=== PATIENT | male | born 1960 | race Two or more races ===

== ENCOUNTER 2019-02-25 16:52 | Emergency (ER) | payer OTHER ==
[2019-02-25 16:55] VITALS: BP 124/67
[2019-02-25] MEDS ORDERED: ACETAMINOPHEN 500 MG TABLET PO ONE (17:15)
[2019-02-25 17:33] LABS: INFLUENZA A PATIENT POSITIVE (NEGATIVE); INFLUENZA B PATIENT NEGATIVE (NEGATIVE)
--- NOTE | 2019-02-25 17:36 | RAD ---
Chest radiograph 02/25/2019 5:06 PM INDICATION: Fever, cough COMPARISON: None available TECHNIQUE: Frontal and lateral views of the chest are provided. FINDINGS: The cardiomediastinal silhouette is within normal limits. There are no pleural effusions. There is no pulmonary vascular congestion. There is no pneumothorax. Rounded opacity in the right midlung measures 2.3 cm. No significant osseous abnormality is identified. IMPRESSION: 2.3 cm rounded nodular opacity in the right midlung is identified. Differential considerations include rounded pneumonia versus pulmonary neoplasm. Recommend CT chest for further evaluation. Electronically signed by: Janina Sotelo MD (02/25/2019 5:33 PM) [facility]
--- NOTE | 2019-02-25 17:50 | PHYS DOC ---
Past Medical History Alcohol Use: Rarely (LO GUERRERO APRN) Attending Signature I have participated in the care of this patient and I have reviewed and agree with all pertinent clinical information above including history, exam, and recommendations. (CIPRIANO TANNER MD) Adult General Chief Complaint Chief Complaint: COUGH HPI HPI Patient is a 58 year old medical presents to the ED today complaining of a productive cough with body aches fevers and chills that began yesterday. Denies any shortness of breath. (LO GUERRERO APRN) Review of Systems Review of Systems Constitutional: Reports body aches chills and fever Eyes: Denies change in visual acuity, redness, or eye pain [] HENT: Denies nasal congestion or sore throat [] Respiratory: Reports cough, denies shortness of breath [] Cardiovascular: No additional information not addressed in HPI [] GI: Denies abdominal pain, nausea, vomiting, bloody stools or diarrhea [] : Denies dysuria or hematuria [] Musculoskeletal: Denies back pain or joint pain [] Integument: Denies rash or skin lesions [] Neurologic: Denies headache, focal weakness or sensory changes [] All other systems were reviewed and found to be within normal limits, except as documented in this note. (LO GUERRERO APRN) Current Medications Current Medications Current Medications Medications (Trade) Dose Ordered Sig/Babatunde Start Time Stop Time Status Last Admin Dose Admin Acetaminophen (Tylenol) 1,000 mg 1X ONCE 02/25/19 17:15 02/25/19 17:16 DC 02/25/19 17:16 1,000 MG (CIPRIANO TANNER MD) Allergies Allergies Allergies Coded Allergies Type Severity Reaction Last Updated Verified No Known Drug Allergies 02/25/19 No (CIPRIANO TANNER MD) Physical Exam Physical Exam Constitutional: Well developed, well nourished, no acute distress, non-toxic appearance. [] HENT: Normocephalic, atraumatic, bilateral external ears normal, oropharynx moist, no oral exudates, nose normal. [] Eyes: PERRLA, EOMI, conjunctiva normal, no discharge. [] Neck: Normal range of motion, no tenderness, supple, no stridor. [] Cardiovascular:Heart rate regular rhythm, no murmur [] Lungs & Thorax: Bilateral breath sounds clear to auscultation [] Abdomen: Bowel sounds normal, soft, no tenderness, no masses, no pulsatile masses. [] Skin: Warm, dry, no erythema, no rash. [] Back: No tenderness, no CVA tenderness. [] Extremities: No tenderness, no cyanosis, no clubbing, ROM intact, no edema. [] Neurologic: Alert and oriented X 3, normal motor function, normal sensory function, no focal deficits noted. [] Psychologic: Affect normal, judgement normal, mood normal. [] (LO GUERRERO APRN) Current Patient Data Vital Signs Vital Signs Date Time Temp Pulse Resp B/P (MAP) Pulse Ox O2 Delivery O2 Flow Rate FiO2 02/25/19 16:55 100.4 100 18 124/67 (86) 97 Room Air 100.4 (CIPRIANO TANNER MD) Lab Values Laboratory Tests Test 02/25/19 17:02 Influenza Type A Antigen Positive (NEGATIVE) Influenza Type B Antigen Negative (NEGATIVE) (CIPRIANO TANNER MD) EKG EKG [] (LO GUERRERO APRN) Radiology/Procedures Radiology/Procedures []PROCEDURE: CHEST PA & LATERAL Chest radiograph 02/25/2019 5:06 PM INDICATION: Fever, cough COMPARISON: None available TECHNIQUE: Frontal and lateral views of the chest are provided. FINDINGS: The cardiomediastinal silhouette is within normal limits. There are no pleural effusions. There is no pulmonary vascular congestion. There is no pneumothorax. Rounded opacity in the right midlung measures 2.3 cm. No significant osseous abnormality is identified. IMPRESSION: 2.3 cm rounded nodular opacity in the right midlung is identified. Differential considerations include rounded pneumonia versus pulmonary neoplasm. Recommend CT chest for further evaluation. Electronically signed by: Aashish Peter MD (02/25/2019 5:33 PM) [id number] DICTATED and SIGNED BY: AASHISH PETER MD DATE: 02/25/19 1733 PROCEDURE: CT CHEST WO CONTRAST Examination: CT CHEST WO CONTRAST History: Lung nodule Comparison/Correlation: 02/25/2019 two-view chest x-ray exam Findings: Axial images of chest were obtained without contrast. Sagittal and coronal reformatted images were provided. Calcified granuloma involves the right lateral upper lung field corresponding to the mass reported on chest x-ray exam. This measures 2.4 cm x 1.5 cm in the axial plane. Several smaller satellite surrounding calcified granulomas are present as well. Minimal linear scarring or atelectasis involving posterior lung bases noted. Mild bronchial wall thickening of the lower lobes noted may represent mild bronchitis. No pleural or effusion. No enlarged thoracic lymph nodes. No pneumothorax. Minimal diverticulosis is present. Low-attenuation lesion involving the liver measuring up to 0.8 cm diameter is present on axial image 49. It is too small to characterize and of indeterminate significance. It is not smoothly marginated. Bony structures are unremarkable. Impression: No suspicious pulmonary nodule or mass. Benign-appearing calcified granulomas involving the right upper lobe presumably related to previous granulomatous or other infectious process. Indeterminate hepatic lesions is too small to characterize. Correlate with prior exams if available to establish stability. If stability is unknown and the patient's risk factors are low, then follow-up CT of the abdomen with contrast in 4-6 months may be performed to assess stability. PQRS Compliance Statement: One or more of the following individualized dose reduction techniques were utilized for this examination: 1. Automated exposure control 2. Adjustment of the mA and/or kV according to patient size 3. Use of iterative reconstruction technique Electronically signed by: Shawn Jo MD (02/25/2019 6:21 PM) [facility] DICTATED and SIGNED BY: SHAWN JO MD DATE: 02/25/191820 (LO GUERRERO APRN) Course & Med Decision Making Course & Med Decision Making Pertinent Labs and Imaging studies reviewed. (See chart for details) This is a 58-year-old male patient presented to the ED today with productive cough, body aches chills and fever that began yesterday. Temperature 100.4 on arrival. Positive influenza A. Chest x-ray interpreted by radiologist was noted for -2.3 cm rounded nodular opacity in the right midlung is identified. Differential considerations include rounded pneumonia versus pulmonary neoplasm. Recommend CT chest for further evaluation. Ct of the chest -No suspicious pulmonary nodule or mass. Benign-appearing calcified granulomas involving the right upper lobe presumably related to previous granulomatous or other infectious process. Indeterminate hepatic lesions is too small to characterize Patient reports hx of lung infection 30 years ago as well as Hepatitis C D/c on Tamiflu and cough medicine f/u with PCP in 1-2 weeks. (LO GUERRERO APRN) Dragon Disclaimer Dragon Disclaimer This electronic medical record was generated, in whole or in part, using a voice recognition dictation system. (LO GUERRERO APRN) Departure Departure Impression: Primary Impression: Influenza A Additional Impressions: Fever Cough Disposition: HOME, SELF-CARE Condition: STABLE Patient Instructions: Cough, Adult, Xtcw-mr-Iair, Fever, Adult, Influenza A (H1N1) Additional Instructions: You have influenza A. Please take the prescribed medicines as ordered. Please rest, push fluids. Follow up with your doctor in 1-2 weeks. Scripts Prednisone (PREDNISONE) 50 Mg Tablet 1 TAB PO DAILY, #5 TAB Prov: LO GUERRERO APRN 02/25/19 Oseltamivir Phosphate (TAMIFLU) 75 Mg Capsule 1 CAP PO BID, #10 CAP Prov: LO GUERRERO APRN 02/25/19 Problem Qualifiers Additional Impressions: Fever Fever type: unspecified Qualified Codes: R50.9 - Fever, unspecified LO GUERRERO APRN Feb 25, 2019 17:49 CIPRIANO TANNER MD Feb 26, 2019 05:45
--- NOTE | 2019-02-25 18:24 | RAD ---
Examination: CT CHEST WO CONTRAST History: Lung nodule Comparison/Correlation: 02/25/2019 two-view chest x-ray exam Findings: Axial images of chest were obtained without contrast. Sagittal and coronal reformatted images were provided. Calcified granuloma involves the right lateral upper lung field corresponding to the mass reported on chest x-ray exam. This measures 2.4 cm x 1.5 cm in the axial plane. Several smaller satellite surrounding calcified granulomas are present as well. Minimal linear scarring or atelectasis involving posterior lung bases noted. Mild bronchial wall thickening of the lower lobes noted may represent mild bronchitis. No pleural or effusion. No enlarged thoracic lymph nodes. No pneumothorax. Minimal diverticulosis is present. Low-attenuation lesion involving the liver measuring up to 0.8 cm diameter is present on axial image 49. It is too small to characterize and of indeterminate significance. It is not smoothly marginated. Bony structures are unremarkable. Impression: No suspicious pulmonary nodule or mass. Benign-appearing calcified granulomas involving the right upper lobe presumably related to previous granulomatous or other infectious process. Indeterminate hepatic lesions is too small to characterize. Correlate with prior exams if available to establish stability. If stability is unknown and the patient's risk factors are low, then follow-up CT of the abdomen with contrast in 4-6 months may be performed to assess stability. PQRS Compliance Statement: One or more of the following individualized dose reduction techniques were utilized for this examination: 1. Automated exposure control 2. Adjustment of the mA and/or kV according to patient size 3. Use of iterative reconstruction technique Electronically signed by: Shawn Ackerman MD (02/25/2019 6:21 PM) [facility]
[2019-02-25] MEDS ORDERED: PRED50TA PO (18:41)
[2019-02-25] MEDS ORDERED: PROM5SYR2 PO (18:41)
[2019-02-25] MEDS ORDERED: OSEL75CA PO (18:41)
== END 2019-02-25 18:55 | disposition home or self-care (01) ==
LOC: ER 16:52
DX: J10.1 Influenza due to other identified influenza virus with other respiratory manifestations (principal)
CPT/HCPCS: 71046; 71250; 87804; 99285-25

== ENCOUNTER 2020-02-27 09:25 | Inpatient (IN) | payer OTHER ==
[~2020-02-27] VITALS: Ht 170.2 cm; Wt 60.7 kg
[~2020-02-27 09:25] MED LIST: OSEL75CA PO; PRED50TA PO; PROM5SYR2 PO
--- NOTE | 2020-02-27 10:32 | PHYS DOC ---
Past Medical History Smoking Status: Never Smoker Alcohol Use: Rarely General Adult EDM: Chief Complaint: SHORTNESS OF BREATH HPI: HPI: Patient is a 59 year old male who presented to ER for evaluation of cough, fever, trouble breathing. Patient has been sick for a week, tested positive for COVID-19 on last Tuesday. Patient is a non-smoker. He has no history of COPD, he is not on oxygen at home. Patient denies any chest pain, no abdominal pain, no nausea or vomiting. Patient oxygen saturation on room air is 85% upon arrival to room, his oxygen saturation improved to 95% with 2 L of oxygen. Review of Systems: Review of Systems: Constitutional: Positive for fever or chills. [] Eyes: Denies change in visual acuity. [] HENT: Denies nasal congestion or sore throat. [] Respiratory: Positive for cough and shortness of breath. [] Cardiovascular: Denies chest pain or edema. [] GI: Denies abdominal pain, nausea, vomiting, bloody stools or diarrhea. [] : Denies dysuria. [] Musculoskeletal: Denies back pain or joint pain. [] Integument: Denies rash. [] Neurologic: Denies headache, focal weakness or sensory changes. [] Endocrine: Denies polyuria or polydipsia. [] Lymphatic: Denies swollen glands. [] Psychiatric: Denies depression or anxiety. [] Heart Score: Risk Factors: Risk Factors: DM, Current or recent (<one month) smoker, HTN, HLP, family history of CAD, obesity. Risk Scores: Score 0 - 3: 2.5% MACE over next 6 weeks - Discharge Home Score 4 - 6: 20.3% MACE over next 6 weeks - Admit for Clinical Observation Score 7 - 10: 72.7% MACE over next 6 weeks - Early Invasive Strategies Allergies: Allergies: Allergies Coded Allergies Type Severity Reaction Last Updated Verified No Known Drug Allergies 02/25/19 No Physical Exam: PE: Constitutional: Well developed, well nourished, no acute distress, non-toxic appearance. [] HENT: Normocephalic, atraumatic, bilateral external ears normal, oropharynx moist, no oral exudates, nose normal. [] Eyes: PERRLA, EOMI, conjunctiva normal, no discharge. [] Neck: Normal range of motion, no tenderness, supple, no stridor. [] Cardiovascular:Heart rate regular rhythm, no murmur [] Lungs & Thorax: Bilateral breath sounds with diffuse crackles to auscultation [] Abdomen: Bowel sounds normal, soft, no tenderness, no masses, no pulsatile masses. [] Skin: Warm, dry, no erythema, no rash. [] Back: No tenderness, no CVA tenderness. [] Extremities: No tenderness, no cyanosis, no clubbing, ROM intact, no edema. [] Neurologic: Alert and oriented X 3, normal motor function, normal sensory function, no focal deficits noted. [] Psychologic: Affect normal, judgement normal, mood normal. [] Current Patient Data: Labs: Laboratory Tests Test 02/27/20 10:30 Sodium Level 137 mmol/L Potassium Level 4.0 mmol/L Chloride Level 100 mmol/L Carbon Dioxide Level 26 mmol/L Anion Gap 11 Blood Urea Nitrogen 18 mg/dL Creatinine 1.0 mg/dL Estimated GFR (Cockcroft-Gault) 76.5 BUN/Creatinine Ratio 18 Glucose Level 128 mg/dL Lactic Acid Level 1.3 mmol/L Calcium Level 8.6 mg/dL Total Bilirubin 1.4 mg/dL Aspartate Amino Transf (AST/SGOT) 59 U/L Alanine Aminotransferase (ALT/SGPT) 76 U/L Alkaline Phosphatase 90 U/L Troponin I Quantitative < 0.017 ng/mL Total Protein 7.1 g/dL Albumin 3.5 g/dL Albumin/Globulin Ratio 1.0 Current Medications Medications (Trade) Dose Ordered Sig/Babatunde Route PRN Reason Start Time Stop Time Status Last Admin Dose Admin Ceftriaxone Sodium (Rocephin) 1 gm 1X ONCE IVP 02/27/20 11:15 02/27/20 11:16 Methylprednisolone Sodium Succinate (SOLU-Medrol 125MG VIAL) 125 mg 1X ONCE IV 02/27/20 11:15 02/27/20 11:16 EKG: EKG: [] Radiology/Procedures: Radiology/Procedures: [][facility] [address] [place], [place] [id number] IMAGING REPORT Signed PATIENT: JANELL KINNEYOUNT: [id number] : 1960 LOCATION: ER AGE: 59 SEX: M EXAM STATUS: REG ER ORD. PHYSICIAN: MABLE PATTON DO REASON: COVID-19 INFECTION, HYPOXIA PROCEDURE: PORTABLE CHEST 1V Single AP view of the chest. Comparison: 02/25/2019. Indication: Covid infection and hypoxia Findings: The heart is not enlarged. There is no pneumothorax or effusion. Mild per ipheral interstitial opacities are identified in the mid lung. There are air bronchograms seen in the retrocardiac left lung base. Impression: 1. Probable infectious consolidating pneumonia superimposed on mild Covid pneumonia. Electronically signed by: Yovanny Quintanilla MD (02/27/2020 11:34 AM) [id number] DICTATED and SIGNED BY: YOVANNY QUINTANILLA MD DATE: 02/27/20 [id number] 0 Course & Med Decision Making: Course & Med Decision Making Pertinent Labs and Imaging studies reviewed. (See chart for details) Patient is a 59-year-old male who was evaluated in the ER due to trouble breathing, fever. Patient has COVID-19 infection since last week, he is hypoxic. He will need to be admitted to the hospital for respiratory failure. Dragon Disclaimer: Dragon Disclaimer: This electronic medical record was generated, in whole or in part, using a voice recognition dictation system. Departure Departure Impression: Primary Impression: Pneumonia due to COVID-19 virus Additional Impression: Respiratory failure Disposition: ADMITTED INPT THIS HOSP Admitting Physician: XAVIER (DR. CHRISTIE) Condition: IMPROVED Referrals: NO PCP (PCP) MABLE PATTON DO Feb 27, 2020 10:31
[2020-02-27 11:01] LABS: CALCIUM 8.6 mg/dL (8.5-10.1); GFR 76.5
[2020-02-27 11:06] LABS: BILIRUBIN,URINE SMALL (NEG); CLARITY,URINE CLEAR; COLOR,URINE ORANGE; NITRITE,URINE NEGATIVE (NEG); PROTEIN,URINE >=300 mg/dL (NEG-TRACE)
[2020-02-27 11:07] LABS: ALBUMIN 3.5 g/dL (3.4-5.0); TOTAL BILIRUBIN 1.4 mg/dL (0.2-1.0); TOTAL PROTEIN 7.1 g/dL (6.4-8.2)
[2020-02-27] MEDS ORDERED: cefTRIAXone IV Push 1 GM VIAL. IVP ONE (11:15)
[2020-02-27] MEDS ORDERED: methylPREDNISolone SOD SUCC PF 125 MG/2 ML VIAL. IV ONE (11:15)
--- NOTE | 2020-02-27 11:16 | PDOC1 ---
History and Physical Date of Admission Date of Admission DATE: 02/27/20 TIME: 11:15 Identification/Chief Complaint Chief Complaint SEEN IN ER WITH COVID 19 PNEUMONIA 59 year old male who presented to ER for evaluation of cough, fever, trouble breathing. //has been sick for a week, tested positive for COVID-19 on last Tuesday. non-smoker. denies any chest pain, no abdominal pain, no nausea or vomiting. oxygen saturation on room air is 85% upon arrival to room, his oxygen saturation improved to 95% with 2 L of oxygen. Past Medical History Cardiovascular: Hyperlipidemia Family History Family History: Hypertension Social History Smoke: <1 pack per day ALCOHOL: none Drugs: None Current Medications Current Medications Current Medications Ceftriaxone Sodium (Rocephin) 1 gm 1X ONCE IVP ; Start 02/27/20 at 11:15; Stop 02/27/20 at 11:16 Methylprednisolone Sodium Succinate (SOLU-Medrol 125MG VIAL) 125 mg 1X ONCE IV ; Start 02/27/20 at 11:15; Stop 02/27/20 at 11:16 Active Scripts Active Prednisone 50 Mg Tablet 1 Tab PO DAILY Tamiflu (Oseltamivir Phosphate) 75 Mg Capsule 1 Cap PO BID Allergies Allergies: Coded Allergies: No Known Drug Allergies (Unverified , 02/25/19) ROS Review of System Constitutional: Positive for fever or chills. [] Eyes: Denies change in visual acuity. [] HENT: Denies nasal congestion or sore throat. [] Respiratory: Positive for cough and shortness of breath. [] Cardiovascular: Denies chest pain or edema. [] GI: Denies abdominal pain, nausea, vomiting, bloody stools or diarrhea. [] : Denies dysuria. [] Musculoskeletal: Denies back pain or joint pain. [] Integument: Denies rash. [] Neurologic: Denies headache, focal weakness or sensory changes. [] Endocrine: Denies polyuria or polydipsia. [] Lymphatic: Denies swollen glands. [] Psychiatric: Denies depression or anxiety. [] 14 pt ros otherwise neg General: YES: Fatigue, Malaise Respiratory: YES: Shortness of breath, SOB with excertion Physical Exam Physical Exam Constitutional: Well developed, well nourished, no acute distress, non-toxic appearance. [] HENT: Normocephalic, atraumatic, bilateral external ears normal, oropharynx moist, no oral exudates, nose normal. [] Eyes: PERRLA, EOMI, conjunctiva normal, no discharge. [] Neck: Normal range of motion, no tenderness, supple, no stridor. [] Cardiovascular:Heart rate regular rhythm, no murmur [] Lungs & Thorax: Bilateral breath sounds with diffuse crackles to auscultation [] Abdomen: Bowel sounds normal, soft, no tenderness, no masses, no pulsatile masses. [] Skin: Warm, dry, no erythema, no rash. [] Back: No tenderness, no CVA tenderness. [] Extremities: No tenderness, no cyanosis, no clubbing, ROM intact, no edema. [] Neurologic: Alert and oriented X 3, normal motor function, normal sensory function, no focal deficits noted. [] Psychologic: Affect normal, judgment normal, mood normal. [] Vitals Vitals Vital Signs Date Time Temp Pulse Resp B/P (MAP) Pulse Ox O2 Delivery O2 Flow Rate FiO2 02/27/20 10:25 101.9 96 20 143/67 (92) 93 Nasal Cannula 4.0 101.9 Labs Labs Laboratory Tests Test 02/27/20 10:30 Sodium Level 137 mmol/L (136-145) Potassium Level 4.0 mmol/L (3.5-5.1) Chloride Level 100 mmol/L (98-107) Carbon Dioxide Level 26 mmol/L (21-32) Anion Gap 11 (6-14) Blood Urea Nitrogen 18 mg/dL (8-26) Creatinine 1.0 mg/dL (0.7-1.3) Estimated GFR (Cockcroft-Gault) 76.5 BUN/Creatinine Ratio 18 (6-20) Glucose Level 128 mg/dL (70-99) Lactic Acid Level 1.3 mmol/L (0.4-2.0) Calcium Level 8.6 mg/dL (8.5-10.1) Total Bilirubin 1.4 mg/dL (0.2-1.0) Aspartate Amino Transf (AST/SGOT) 59 U/L (15-37) Alanine Aminotransferase (ALT/SGPT) 76 U/L (16-63) Alkaline Phosphatase 90 U/L (46-116) Troponin I Quantitative < 0.017 ng/mL (0.000-0.055) Total Protein 7.1 g/dL (6.4-8.2) Albumin 3.5 g/dL (3.4-5.0) Albumin/Globulin Ratio 1.0 (1.0-1.7) Laboratory Tests Test 02/27/20 10:30 Sodium Level 137 mmol/L (136-145) Potassium Level 4.0 mmol/L (3.5-5.1) Chloride Level 100 mmol/L (98-107) Carbon Dioxide Level 26 mmol/L (21-32) Anion Gap 11 (6-14) Blood Urea Nitrogen 18 mg/dL (8-26) Creatinine 1.0 mg/dL (0.7-1.3) Estimated GFR (Cockcroft-Gault) 76.5 BUN/Creatinine Ratio 18 (6-20) Glucose Level 128 mg/dL (70-99) Lactic Acid Level 1.3 mmol/L (0.4-2.0) Calcium Level 8.6 mg/dL (8.5-10.1) Total Bilirubin 1.4 mg/dL (0.2-1.0) Aspartate Amino Transf (AST/SGOT) 59 U/L (15-37) Alanine Aminotransferase (ALT/SGPT) 76 U/L (16-63) Alkaline Phosphatase 90 U/L (46-116) Troponin I Quantitative < 0.017 ng/mL (0.000-0.055) Total Protein 7.1 g/dL (6.4-8.2) Albumin 3.5 g/dL (3.4-5.0) Albumin/Globulin Ratio 1.0 (1.0-1.7) Images Images Single AP view of the chest. Comparison: 02/25/2019. Indication: Covid infection and hypoxia Findings: The heart is not enlarged. There is no pneumothorax or effusion. Mild peripheral interstitial opacities are identified in the mid lung. There are air bronchograms seen in the retrocardiac left lung base. Impression: 1. Probable infectious consolidating pneumonia superimposed on mild Covid pneumonia. Electronically signed by: Abdelrahman Araiza MD (02/27/2020 11:34 AM) [id number] DICTATED and SIGNED BY: ABDELRAHMAN ARAIZA MD VTE Prophylaxis Ordered VTE Prophylaxis Devices: Yes VTE Pharmacological Prophylaxi: Yes Assessment/Plan Assessment/Plan Impression: Acute hypoxic respiratory failure consolidating pneumonia superimposed on mild Covid pneumonia. plan admit consult pulmonary o2 support Empiric antibiotic. IV dexamethasone. D/W er dr Justifications for Admission Other Justification GOLDEN CHRISTIE MD Feb 27, 2020 11:16
[2020-02-27 11:20] LABS: BASO % 0 % (0-3); EOS % 0 % (0-3); HEMATOCRIT 42.3 % (39.0-53.0); HEMOGLOBIN 14.5 g/dL (13.0-17.5); LYMPH # 0.5 x10^3/uL (1.0-4.8); LYMPH % 5 % (24-48); MEAN CORPUSCULAR HEMOGLOBIN 31 pg (25-35); MEAN CORPUSCULAR HGB CONC 34 g/dL (31-37); MEAN CORPUSCULAR VOLUME 90 fL (79-100); MONO # 0.7 x10^3/uL (0.0-1.1); MONO % 7 % (0-9); NEUT # 8.7 x10^3/uL (1.8-7.7); NEUT % 88 % (31-73); PLATELET COUNT 174 x10^3/uL (140-400); RED BLOOD COUNT 4.72 x10^6/uL (4.30-5.70); RED CELL DISTRIBUTION WIDTH 13.4 % (11.5-14.5); WHITE BLOOD COUNT 9.9 x10^3/uL (4.0-11.0)
[2020-02-27 11:24] LABS: BACTERIA,URINE FEW /HPF (0-FEW); RBC,URINE OCC /HPF (0-2)
[2020-02-27] MEDS: IV NORMAL SALINE 1000ML BAG 1,000 ML IV SCH ×2 (11:29→23:45)
[2020-02-27] MEDS ORDERED: ONDANSETRON PF 4 MG/2 ML VIAL. IV PRN ×2 (11:30→14:15)
--- NOTE | 2020-02-27 11:37 | RAD ---
Single AP view of the chest. Comparison: 02/25/2019. Indication: Covid infection and hypoxia Findings: The heart is not enlarged. There is no pneumothorax or effusion. Mild peripheral interstitial opacit ies are identified in the mid lung. There are air bronchograms seen in the retrocardiac left lung bas e. Impression: 1. Probable infectious consolidating pneumonia superimposed on mild Covid pneumonia. Electronically signed by: Yovanny Quintanilla MD (02/27/2020 11:34 AM) [id number]
[2020-02-27 12:19] LABS: % BANDS 3 % (0-9); % EOS 1 % (0-5); % MONOS 5 % (0-10); % SEGS 91 % (35-66); PLT ESTIMATE ADEQUATE (ADEQUATE)
--- NOTE | 2020-02-27 12:19 | CONS ---
DATE OF CONSULTATION: 02/27/2020 Reason for consultation: COVID -19 Pneumonia/ Respiratory failure Patient is a 59 year old male who presented to ER for evaluation of cough, fever, trouble breathing. Patient has been sick for a week, tested positive for COVID-19 on last Tuesday. Patient is a non-smoker. He has no history of COPD, he is not on oxygen at home. Patient denies any chest pain, no abdominal pain, no nausea or vomiting. Patient oxygen saturation on room air is 85% upon arrival to room, his oxygen saturation improved to 95% with 2 L of oxygen.No headache, nausea, vomitting . Pt was seen in the ER. PMH: Not significant. ALLERGIES: None. MEDICATIONS: Given in the ER were reviewed. FAMILY HISTORY: Noncontributory to lungs. PHYSICAL EXAMINATION: VITAL SIGNS: T-max of 101.9. Blood pressure stable, pulse ox 93% on 4 liters. GENERAL: Visual exam done due to COVID-19. No obvious respiratory distress. EXTREMITIES: No leg edema. LABORATORY DATA: Reviewed. White cell count 9.9, hemoglobin 14.5 and platelets are 174. IMPRESSION: 1. Acute hypoxic respiratory failure secondary to COVID-19 pneumonia. 2. Abnormal chest x-ray with faint interstitial infiltrates in the left lung. 3. No significant tobacco history. RECOMMENDATIONS: 1. Continue present oxygen to keep saturation 94 and above. 2. Empiric antibiotic. 3. IV dexamethasone. 4. We will monitor the clinical course and watch for any increase in oxygen requirement. 5. DVT prophylaxis. 6. Discussed with ER physician. ADALBERTO EDGAR MD DR: MONIQUE/alyssia JOB#: [id number] / [id number] CALNI
[2020-02-27] MEDS ORDERED: ACETAMINOPHEN 325 MG TABLET. PO PRN ×2 (14:00→14:15)
[2020-02-27 14:01] VITALS: BP 120/60
[2020-02-27] MEDS ORDERED: GUAI600T47 PO (14:01)
[2020-02-27] MEDS ORDERED: DOCUSATE SODIUM 100 MG CAPSULE. PO PRN (14:15)
[2020-02-27] MEDS ORDERED: MAG HYDROX/ALUMINUM HYD/SIMETH 30 ML ORAL.SUSP PO PRN (14:15)
[2020-02-27] MEDS ORDERED: SODIUM PHOSPHATES 19/7GM 133 ML ENEMA. PR PRN (14:15)
[2020-02-27] MEDS ORDERED: diphenhydrAMINE 50 MG/ML VIAL IVP PRN (14:15)
[2020-02-27] MEDS ORDERED: ALBUTEROL SULFATE 2.5 MG/3 ML NEBU. NEB PRN (14:15)
[2020-02-27] MEDS ORDERED: LORazepam 0.5 MG TABLET PO PRN (14:15)
[2020-02-27] MEDS ORDERED: cloNIDine HCL 0.1 MG TABLET PO PRN (14:15)
[2020-02-27] MEDS ORDERED: IV NORMAL SALINE 1000ML BAG 1,000 ML IV SCH (14:15)
[2020-02-27] MEDS ORDERED: guaiFENesin ORAL 200 MG/10 ML LIQUID. PO PRN (14:15)
[2020-02-27] MEDS ORDERED: 0.9 % SODIUM CHLORIDE 10 ML DISP.SYRIN. IV PRN (14:15)
[2020-02-27] MEDS ORDERED: ENOXAPARIN 40 MG/0.4 ML SYRINGE. SQ SCH (15:00)
[2020-02-27] MEDS: PIPERACILLIN/TAZOBACTAM 3.375 GM in IV NORMAL SALINE 50ML 50 ML IV SCH (15:52)
[2020-02-27 19:00] VITALS: BP 112/60
[2020-02-27 22:54] VITALS: BP 104/67
[2020-02-28] MEDS: PIPERACILLIN/TAZOBACTAM 3.375 GM in IV NORMAL SALINE 50ML 50 ML IV SCH ×5 (00:22→23:25)
[2020-02-28 03:00] VITALS: BP 127/67
[2020-02-28 07:00] VITALS: BP 129/64
[2020-02-28] MEDS: DEXAMETHASONE SOD PHOS 4 MG/ML VIAL IVP SCH (08:09)
--- NOTE | 2020-02-28 08:36 | PDOC ---
PULMONARY PROGRESS NOTES DATE: 02/28/20 TIME: 08:36 Subjective Patient feels tired, but not more short of air. No chest pain no pressure. Vitals Vital Signs Date Time Temp Pulse Resp B/P (MAP) Pulse Ox O2 Delivery O2 Flow Rate FiO2 02/28/20 07:00 97.2 81 17 129/64 (85) 91 Nasal Cannula 2.0 97.2 ROS: No Nausea, No Chest Pain, No Abdominal Pain, No Increase Cough Lungs: Clear Cardiovascular: S1, S2 Abdomen: Soft Neuro Exam: Alert Extremities: No Edema Skin: Warm Labs Laboratory Tests Test 02/27/20 10:30 White Blood Count 9.9 x10^3/uL (4.0-11.0) Red Blood Count 4.72 x10^6/uL (4.30-5.70) Hemoglobin 14.5 g/dL (13.0-17.5) Hematocrit 42.3 % (39.0-53.0) Mean Corpuscular Volume 90 fL (79-100) Mean Corpuscular Hemoglobin 31 pg (25-35) Mean Corpuscular Hemoglobin Concent 34 g/dL (31-37) Red Cell Distribution Width 13.4 % (11.5-14.5) Platelet Count 174 x10^3/uL (140-400) Neutrophils (%) (Auto) 88 % (31-73) Lymphocytes (%) (Auto) 5 % (24-48) Monocytes (%) (Auto) 7 % (0-9) Eosinophils (%) (Auto) 0 % (0-3) Basophils (%) (Auto) 0 % (0-3) Neutrophils # (Auto) 8.7 x10^3/uL (1.8-7.7) Lymphocytes # (Auto) 0.5 x10^3/uL (1.0-4.8) Monocytes # (Auto) 0.7 x10^3/uL (0.0-1.1) Eosinophils # (Auto) 0.0 x10^3/uL (0.0-0.7) Basophils # (Auto) 0.0 x10^3/uL (0.0-0.2) Segmented Neutrophils % 91 % (35-66) Band Neutrophils % 3 % (0-9) Monocytes % 5 % (0-10) Eosinophils % 1 % (0-5) Platelet Estimate Adequate (ADEQUATE) Urine Collection Type Unknown Urine Color [place] Urine Clarity Clear Urine pH 6.0 (<5.0-8.0) Urine Specific [place] >=1.030 (1.000-1.030) Urine Protein >=300 mg/dL (NEG-TRACE) Urine Glucose (UA) Negative mg/dL (NEG) Urine Ketones (Stick) >=80 mg/dL (NEG) Urine Blood Trace (NEG) Urine Nitrite Negative (NEG) Urine Bilirubin Small (NEG) Urine Urobilinogen Dipstick 4.0 mg/dL (0.2 mg/dL) Urine Leukocyte Esterase Trace (NEG) Urine RBC Occ /HPF (0-2) Urine WBC 1-4 /HPF (0-4) Urine Squamous Epithelial Cells Occ /LPF Urine Bacteria Few /HPF (0-FEW) Urine Mucus Mod /LPF Sodium Level 137 mmol/L (136-145) Potassium Level 4.0 mmol/L (3.5-5.1) Chloride Level 100 mmol/L (98-107) Carbon Dioxide Level 26 mmol/L (21-32) Anion Gap 11 (6-14) Blood Urea Nitrogen 18 mg/dL (8-26) Creatinine 1.0 mg/dL (0.7-1.3) Estimated GFR (Cockcroft-Gault) 76.5 BUN/Creatinine Ratio 18 (6-20) Glucose Level 128 mg/dL (70-99) Lactic Acid Level 1.3 mmol/L (0.4-2.0) Calcium Level 8.6 mg/dL (8.5-10.1) Total Bilirubin 1.4 mg/dL (0.2-1.0) Aspartate Amino Transf (AST/SGOT) 59 U/L (15-37) Alanine Aminotransferase (ALT/SGPT) 76 U/L (16-63) Alkaline Phosphatase 90 U/L (46-116) Troponin I Quantitative < 0.017 ng/mL (0.000-0.055) Total Protein 7.1 g/dL (6.4-8.2) Albumin 3.5 g/dL (3.4-5.0) Albumin/Globulin Ratio 1.0 (1.0-1.7) Laboratory Tests Test 02/27/20 10:30 White Blood Count 9.9 x10^3/uL (4.0-11.0) Red Blood Count 4.72 x10^6/uL (4.30-5.70) Hemoglobin 14.5 g/dL (13.0-17.5) Hematocrit 42.3 % (39.0-53.0) Mean Corpuscular Volume 90 fL (79-100) Mean Corpuscular Hemoglobin 31 pg (25-35) Mean Corpuscular Hemoglobin Concent 34 g/dL (31-37) Red Cell Distribution Width 13.4 % (11.5-14.5) Platelet Count 174 x10^3/uL (140-400) Neutrophils (%) (Auto) 88 % (31-73) Lymphocytes (%) (Auto) 5 % (24-48) Monocytes (%) (Auto) 7 % (0-9) Eosinophils (%) (Auto) 0 % (0-3) Basophils (%) (Auto) 0 % (0-3) Neutrophils # (Auto) 8.7 x10^3/uL (1.8-7.7) Lymphocytes # (Auto) 0.5 x10^3/uL (1.0-4.8) Monocytes # (Auto) 0.7 x10^3/uL (0.0-1.1) Eosinophils # (Auto) 0.0 x10^3/uL (0.0-0.7) Basophils # (Auto) 0.0 x10^3/uL (0.0-0.2) Segmented Neutrophils % 91 % (35-66) Band Neutrophils % 3 % (0-9) Monocytes % 5 % (0-10) Eosinophils % 1 % (0-5) Platelet Estimate Adequate (ADEQUATE) Urine Collection Type Unknown Urine Color [place] Urine Clarity Clear Urine pH 6.0 (<5.0-8.0) Urine Specific [place] >=1.030 (1.000-1.030) Urine Protein >=300 mg/dL (NEG-TRACE) Urine Glucose (UA) Negative mg/dL (NEG) Urine Ketones (Stick) >=80 mg/dL (NEG) Urine Blood Trace (NEG) Urine Nitrite Negative (NEG) Urine Bilirubin Small (NEG) Urine Urobilinogen Dipstick 4.0 mg/dL (0.2 mg/dL) Urine Leukocyte Esterase Trace (NEG) Urine RBC Occ /HPF (0-2) Urine WBC 1-4 /HPF (0-4) Urine Squamous Epithelial Cells Occ /LPF Urine Bacteria Few /HPF (0-FEW) Urine Mucus Mod /LPF Sodium Level 137 mmol/L (136-145) Potassium Level 4.0 mmol/L (3.5-5.1) Chloride Level 100 mmol/L (98-107) Carbon Dioxide Level 26 mmol/L (21-32) Anion Gap 11 (6-14) Blood Urea Nitrogen 18 mg/dL (8-26) Creatinine 1.0 mg/dL (0.7-1.3) Estimated GFR (Cockcroft-Gault) 76.5 BUN/Creatinine Ratio 18 (6-20) Glucose Level 128 mg/dL (70-99) Lactic Acid Level 1.3 mmol/L (0.4-2.0) Calcium Level 8.6 mg/dL (8.5-10.1) Total Bilirubin 1.4 mg/dL (0.2-1.0) Aspartate Amino Transf (AST/SGOT) 59 U/L (15-37) Alanine Aminotransferase (ALT/SGPT) 76 U/L (16-63) Alkaline Phosphatase 90 U/L (46-116) Troponin I Quantitative < 0.017 ng/mL (0.000-0.055) Total Protein 7.1 g/dL (6.4-8.2) Albumin 3.5 g/dL (3.4-5.0) Albumin/Globulin Ratio 1.0 (1.0-1.7) Medications Active Scripts Medications Dose Route/Sig Max Daily Dose Days Date Category Mucinex (Guaifenesin) 600 Mg Tablet.er 1 Tab PO BID 10 02/27/20 Reported Prednisone 50 Mg Tablet 1 Tab PO DAILY 02/25/19 Rx Tamiflu (Oseltamivir Phosphate) 75 Mg Capsule 1 Cap PO BID 02/25/19 Rx Impression . IMPRESSION: 1. Acute hypoxic respiratory failure secondary to COVID-19 pneumonia. 2. Abnormal chest x-ray with faint interstitial infiltrates in the left lung. 3. No significant tobacco history. Plan . Continue current support, Repeat chest x-ray in 6 to 8 weeks. Reassured patient that he will improve with time. 1. Continue present oxygen to keep saturation 94 and above. 2. Empiric antibiotic. 3. IV dexamethasone. 4. We will monitor the clinical course and watch for any increase in oxygen requirement. 5. DVT prophylaxis. ALE ROTHMAN MD Feb 28, 2020 08:36
[2020-02-28 09:07] LABS: BASO % 0 % (0-3); EOS % 0 % (0-3); HEMATOCRIT 38.9 % (39.0-53.0); HEMOGLOBIN 13.1 g/dL (13.0-17.5); LYMPH # 0.5 x10^3/uL (1.0-4.8); LYMPH % 3 % (24-48); MEAN CORPUSCULAR HEMOGLOBIN 31 pg (25-35); MEAN CORPUSCULAR HGB CONC 34 g/dL (31-37); MEAN CORPUSCULAR VOLUME 91 fL (79-100); MONO # 0.4 x10^3/uL (0.0-1.1); MONO % 3 % (0-9); NEUT # 12.6 x10^3/uL (1.8-7.7); NEUT % 93 % (31-73); PLATELET COUNT 171 x10^3/uL (140-400); RED BLOOD COUNT 4.28 x10^6/uL (4.30-5.70); RED CELL DISTRIBUTION WIDTH 13.2 % (11.5-14.5); WHITE BLOOD COUNT 13.5 x10^3/uL (4.0-11.0)
[2020-02-28] MEDS: IV NORMAL SALINE 1000ML BAG 1,000 ML IV SCH ×2 (09:11→20:24)
--- NOTE | 2020-02-28 10:12 | PDOC ---
PROGRESS NOTES Date of Service: DATE: 02/28/20 TIME: 10:12 Chief Complaint Chief Complaint VTE Prophylaxis Ordered VTE Prophylaxis Devices: Yes VTE Pharmacological Prophylaxi: Yes Assessment/Plan Assessment/Plan Impression: Acute hypoxic respiratory failure consolidating pneumonia superimposed on mild Covid pneumonia. plan admit consult pulmonary o2 support Empiric antibiotic. IV dexamethasone. D/W RN Justifications for Admission Justifications for Admission Other Justification History of Present Illness History of Present Illness Identification/Chief Complaint Chief Complaint SEEN IN ER WITH COVID 19 PNEUMONIA 59 year old male who presented to ER for evaluation of cough, fever, trouble breathing. //has been sick for a week, tested positive for COVID-19 on last Tuesday. non-smoker. denies any chest pain, no abdominal pain, no nausea or vomiting. oxygen saturation on room air is 85% upon arrival to room, his oxygen saturation improved to 95% with 2 L of oxygen. Past Medical History Cardiovascular: Hyperlipidemia Family History Family History: Hypertension Social History Smoke: <1 pack per day ALCOHOL: none Drugs: None Vitals Vitals Vital Signs Date Time Temp Pulse Resp B/P (MAP) Pulse Ox O2 Delivery O2 Flow Rate FiO2 02/28/20 08:00 Nasal Cannula 2.0 02/28/20 07:00 97.2 81 17 129/64 (85) 91 97.2 Physical Exam Physical Exam Constitutional: Well developed, well nourished, no acute distress, non-toxic appearance. [] HENT: Normocephalic, atraumatic, bilateral external ears normal, oropharynx moist, no oral exudates, nose normal. [] Eyes: PERRLA, EOMI, conjunctiva normal, no discharge. [] Neck: Normal range of motion, no tenderness, supple, no stridor. [] Cardiovascular:Heart rate regular rhythm, no murmur [] Lungs & Thorax: Bilateral breath sounds with diffuse crackles to auscultation [] Abdomen: Bowel sounds normal, soft, no tenderness, no masses, no pulsatile masses. [] Skin: Warm, dry, no erythema, no rash. [] Back: No tenderness, no CVA tenderness. [] Extremities: No tenderness, no cyanosis, no clubbing, ROM intact, no edema. [] Neurologic: Alert and oriented X 3, normal motor function, normal sensory function, no focal deficits noted. [] Psychologic: Affect normal, judgment normal, mood normal. [] General: Alert, Oriented X3, Cooperative, No acute distress Heart: Regular rate Lungs: Crackles Abdomen: Normal bowel sounds, Soft Extremities: No cyanosis Labs LABS Laboratory Tests Test 02/27/20 10:30 02/28/20 08:05 White Blood Count 9.9 x10^3/uL (4.0-11.0) 13.5 x10^3/uL (4.0-11.0) Red Blood Count 4.72 x10^6/uL (4.30-5.70) 4.28 x10^6/uL (4.30-5.70) Hemoglobin 14.5 g/dL (13.0-17.5) 13.1 g/dL (13.0-17.5) Hematocrit 42.3 % (39.0-53.0) 38.9 % (39.0-53.0) Mean Corpuscular Volume 90 fL (79-100) 91 fL (79-100) Mean Corpuscular Hemoglobin 31 pg (25-35) 31 pg (25-35) Mean Corpuscular Hemoglobin Concent 34 g/dL (31-37) 34 g/dL (31-37) Red Cell Distribution Width 13.4 % (11.5-14.5) 13.2 % (11.5-14.5) Platelet Count 174 x10^3/uL (140-400) 171 x10^3/uL (140-400) Neutrophils (%) (Auto) 88 % (31-73) 93 % (31-73) Lymphocytes (%) (Auto) 5 % (24-48) 3 % (24-48) Monocytes (%) (Auto) 7 % (0-9) 3 % (0-9) Eosinophils (%) (Auto) 0 % (0-3) 0 % (0-3) Basophils (%) (Auto) 0 % (0-3) 0 % (0-3) Neutrophils # (Auto) 8.7 x10^3/uL (1.8-7.7) 12.6 x10^3/uL (1.8-7.7) Lymphocytes # (Auto) 0.5 x10^3/uL (1.0-4.8) 0.5 x10^3/uL (1.0-4.8) Monocytes # (Auto) 0.7 x10^3/uL (0.0-1.1) 0.4 x10^3/uL (0.0-1.1) Eosinophils # (Auto) 0.0 x10^3/uL (0.0-0.7) 0.0 x10^3/uL (0.0-0.7) Basophils # (Auto) 0.0 x10^3/uL (0.0-0.2) 0.0 x10^3/uL (0.0-0.2) Segmented Neutrophils % 91 % (35-66) Band Neutrophils % 3 % (0-9) Monocytes % 5 % (0-10) Eosinophils % 1 % (0-5) Platelet Estimate Adequate (ADEQUATE) Urine Collection Type Unknown Urine Color [place] Urine Clarity Clear Urine pH 6.0 (<5.0-8.0) Urine Specific [place] >=1.030 (1.000-1.030) Urine Protein >=300 mg/dL (NEG-TRACE) Urine Glucose (UA) Negative mg/dL (NEG) Urine Ketones (Stick) >=80 mg/dL (NEG) Urine Blood Trace (NEG) Urine Nitrite Negative (NEG) Urine Bilirubin Small (NEG) Urine Urobilinogen Dipstick 4.0 mg/dL (0.2 mg/dL) Urine Leukocyte Esterase Trace (NEG) Urine RBC Occ /HPF (0-2) Urine WBC 1-4 /HPF (0-4) Urine Squamous Epithelial Cells Occ /LPF Urine Bacteria Few /HPF (0-FEW) Urine Mucus Mod /LPF Sodium Level 137 mmol/L (136-145) Potassium Level 4.0 mmol/L (3.5-5.1) Chloride Level 100 mmol/L (98-107) Carbon Dioxide Level 26 mmol/L (21-32) Anion Gap 11 (6-14) Blood Urea Nitrogen 18 mg/dL (8-26) Creatinine 1.0 mg/dL (0.7-1.3) Estimated GFR (Cockcroft-Gault) 76.5 BUN/Creatinine Ratio 18 (6-20) Glucose Level 128 mg/dL (70-99) Lactic Acid Level 1.3 mmol/L (0.4-2.0) Calcium Level 8.6 mg/dL (8.5-10.1) Total Bilirubin 1.4 mg/dL (0.2-1.0) Aspartate Amino Transf (AST/SGOT) 59 U/L (15-37) Alanine Aminotransferase (ALT/SGPT) 76 U/L (16-63) Alkaline Phosphatase 90 U/L (46-116) Troponin I Quantitative < 0.017 ng/mL (0.000-0.055) Total Protein 7.1 g/dL (6.4-8.2) Albumin 3.5 g/dL (3.4-5.0) Albumin/Globulin Ratio 1.0 (1.0-1.7) Assessment and Plan Assessmemt and Plan Problems Medical Problems: (1) Pneumonia due to COVID-19 virus Status: Acute (2) Respiratory failure Status: Acute Comment Review of Relevant I have reviewed the following items ying (where applicable) has been applied. Labs Laboratory Tests Test 02/27/20 10:30 02/28/20 08:05 White Blood Count 9.9 x10^3/uL (4.0-11.0) 13.5 x10^3/uL (4.0-11.0) Red Blood Count 4.72 x10^6/uL (4.30-5.70) 4.28 x10^6/uL (4.30-5.70) Hemoglobin 14.5 g/dL (13.0-17.5) 13.1 g/dL (13.0-17.5) Hematocrit 42.3 % (39.0-53.0) 38.9 % (39.0-53.0) Mean Corpuscular Volume 90 fL (79-100) 91 fL (79-100) Mean Corpuscular Hemoglobin 31 pg (25-35) 31 pg (25-35) Mean Corpuscular Hemoglobin Concent 34 g/dL (31-37) 34 g/dL (31-37) Red Cell Distribution Width 13.4 % (11.5-14.5) 13.2 % (11.5-14.5) Platelet Count 174 x10^3/uL (140-400) 171 x10^3/uL (140-400) Neutrophils (%) (Auto) 88 % (31-73) 93 % (31-73) Lymphocytes (%) (Auto) 5 % (24-48) 3 % (24-48) Monocytes (%) (Auto) 7 % (0-9) 3 % (0-9) Eosinophils (%) (Auto) 0 % (0-3) 0 % (0-3) Basophils (%) (Auto) 0 % (0-3) 0 % (0-3) Neutrophils # (Auto) 8.7 x10^3/uL (1.8-7.7) 12.6 x10^3/uL (1.8-7.7) Lymphocytes # (Auto) 0.5 x10^3/uL (1.0-4.8) 0.5 x10^3/uL (1.0-4.8) Monocytes # (Auto) 0.7 x10^3/uL (0.0-1.1) 0.4 x10^3/uL (0.0-1.1) Eosinophils # (Auto) 0.0 x10^3/uL (0.0-0.7) 0.0 x10^3/uL (0.0-0.7) Basophils # (Auto) 0.0 x10^3/uL (0.0-0.2) 0.0 x10^3/uL (0.0-0.2) Segmented Neutrophils % 91 % (35-66) Band Neutrophils % 3 % (0-9) Monocytes % 5 % (0-10) Eosinophils % 1 % (0-5) Platelet Estimate Adequate (ADEQUATE) Urine Collection Type Unknown Urine Color [place] Urine Clarity Clear Urine pH 6.0 (<5.0-8.0) Urine Specific [place] >=1.030 (1.000-1.030) Urine Protein >=300 mg/dL (NEG-TRACE) Urine Glucose (UA) Negative mg/dL (NEG) Urine Ketones (Stick) >=80 mg/dL (NEG) Urine Blood Trace (NEG) Urine Nitrite Negative (NEG) Urine Bilirubin Small (NEG) Urine Urobilinogen Dipstick 4.0 mg/dL (0.2 mg/dL) Urine Leukocyte Esterase Trace (NEG) Urine RBC Occ /HPF (0-2) Urine WBC 1-4 /HPF (0-4) Urine Squamous Epithelial Cells Occ /LPF Urine Bacteria Few /HPF (0-FEW) Urine Mucus Mod /LPF Sodium Level 137 mmol/L (136-145) Potassium Level 4.0 mmol/L (3.5-5.1) Chloride Level 100 mmol/L (98-107) Carbon Dioxide Level 26 mmol/L (21-32) Anion Gap 11 (6-14) Blood Urea Nitrogen 18 mg/dL (8-26) Creatinine 1.0 mg/dL (0.7-1.3) Estimated GFR (Cockcroft-Gault) 76.5 BUN/Creatinine Ratio 18 (6-20) Glucose Level 128 mg/dL (70-99) Lactic Acid Level 1.3 mmol/L (0.4-2.0) Calcium Level 8.6 mg/dL (8.5-10.1) Total Bilirubin 1.4 mg/dL (0.2-1.0) Aspartate Amino Transf (AST/SGOT) 59 U/L (15-37) Alanine Aminotransferase (ALT/SGPT) 76 U/L (16-63) Alkaline Phosphatase 90 U/L (46-116) Troponin I Quantitative < 0.017 ng/mL (0.000-0.055) Total Protein 7.1 g/dL (6.4-8.2) Albumin 3.5 g/dL (3.4-5.0) Albumin/Globulin Ratio 1.0 (1.0-1.7) Laboratory Tests Test 02/27/20 10:30 02/28/20 08:05 White Blood Count 9.9 x10^3/uL (4.0-11.0) 13.5 x10^3/uL (4.0-11.0) Red Blood Count 4.72 x10^6/uL (4.30-5.70) 4.28 x10^6/uL (4.30-5.70) Hemoglobin 14.5 g/dL (13.0-17.5) 13.1 g/dL (13.0-17.5) Hematocrit 42.3 % (39.0-53.0) 38.9 % (39.0-53.0) Mean Corpuscular Volume 90 fL (79-100) 91 fL (79-100) Mean Corpuscular Hemoglobin 31 pg (25-35) 31 pg (25-35) Mean Corpuscular Hemoglobin Concent 34 g/dL (31-37) 34 g/dL (31-37) Red Cell Distribution Width 13.4 % (11.5-14.5) 13.2 % (11.5-14.5) Platelet Count 174 x10^3/uL (140-400) 171 x10^3/uL (140-400) Neutrophils (%) (Auto) 88 % (31-73) 93 % (31-73) Lymphocytes (%) (Auto) 5 % (24-48) 3 % (24-48) Monocytes (%) (Auto) 7 % (0-9) 3 % (0-9) Eosinophils (%) (Auto) 0 % (0-3) 0 % (0-3) Basophils (%) (Auto) 0 % (0-3) 0 % (0-3) Neutrophils # (Auto) 8.7 x10^3/uL (1.8-7.7) 12.6 x10^3/uL (1.8-7.7) Lymphocytes # (Auto) 0.5 x10^3/uL (1.0-4.8) 0.5 x10^3/uL (1.0-4.8) Monocytes # (Auto) 0.7 x10^3/uL (0.0-1.1) 0.4 x10^3/uL (0.0-1.1) Eosinophils # (Auto) 0.0 x10^3/uL (0.0-0.7) 0.0 x10^3/uL (0.0-0.7) Basophils # (Auto) 0.0 x10^3/uL (0.0-0.2) 0.0 x10^3/uL (0.0-0.2) Segmented Neutrophils % 91 % (35-66) Band Neutrophils % 3 % (0-9) Monocytes % 5 % (0-10) Eosinophils % 1 % (0-5) Platelet Estimate Adequate (ADEQUATE) Urine Collection Type Unknown Urine Color [place] Urine Clarity Clear Urine pH 6.0 (<5.0-8.0) Urine Specific [place] >=1.030 (1.000-1.030) Urine Protein >=300 mg/dL (NEG-TRACE) Urine Glucose (UA) Negative mg/dL (NEG) Urine Ketones (Stick) >=80 mg/dL (NEG) Urine Blood Trace (NEG) Urine Nitrite Negative (NEG) Urine Bilirubin Small (NEG) Urine Urobilinogen Dipstick 4.0 mg/dL (0.2 mg/dL) Urine Leukocyte Esterase Trace (NEG) Urine RBC Occ /HPF (0-2) Urine WBC 1-4 /HPF (0-4) Urine Squamous Epithelial Cells Occ /LPF Urine Bacteria Few /HPF (0-FEW) Urine Mucus Mod /LPF Sodium Level 137 mmol/L (136-145) Potassium Level 4.0 mmol/L (3.5-5.1) Chloride Level 100 mmol/L (98-107) Carbon Dioxide Level 26 mmol/L (21-32) Anion Gap 11 (6-14) Blood Urea Nitrogen 18 mg/dL (8-26) Creatinine 1.0 mg/dL (0.7-1.3) Estimated GFR (Cockcroft-Gault) 76.5 BUN/Creatinine Ratio 18 (6-20) Glucose Level 128 mg/dL (70-99) Lactic Acid Level 1.3 mmol/L (0.4-2.0) Calcium Level 8.6 mg/dL (8.5-10.1) Total Bilirubin 1.4 mg/dL (0.2-1.0) Aspartate Amino Transf (AST/SGOT) 59 U/L (15-37) Alanine Aminotransferase (ALT/SGPT) 76 U/L (16-63) Alkaline Phosphatase 90 U/L (46-116) Troponin I Quantitative < 0.017 ng/mL (0.000-0.055) Total Protein 7.1 g/dL (6.4-8.2) Albumin 3.5 g/dL (3.4-5.0) Albumin/Globulin Ratio 1.0 (1.0-1.7) Medications Current Medications Ceftriaxone Sodium (Rocephin) 1 gm 1X ONCE IVP Last administered on 02/27/20at 11:15; Start 02/27/20 at 11:15; Stop 02/27/20 at 11:16; Status DC Methylprednisolone Sodium Succinate (SOLU-Medrol 125MG VIAL) 125 mg 1X ONCE IV Last administered on 02/27/20at 11:28; Start 02/27/20 at 11:15; Stop 02/27/20 at 11:16; Status DC Ondansetron HCl (Zofran) 4 mg PRN Q8HRS PRN IV NAUSEA/VOMITING Last administered on 02/27/20at 11:28; Start 02/27/20 at 11:30; Stop 02/27/20 at 14:09; Status DC Sodium Chloride 1,000 ml @ 100 mls/hr Q10H IV Last administered on 02/28/20at 09:11; Start 02/27/20 at 11:30 Acetaminophen (Tylenol) 650 mg PRN Q6HRS PRN PO MILD PAIN / TEMP > 100.3'F Last administered on 02/27/20at 14:04; Start 02/27/20 at 14:00; Stop 02/27/20 at 14:09; Status DC Sodium Chloride (Normal Saline Flush) 3 ml QSHIFT PRN IV AFTER MEDS AND BLOOD DRAWS; Start 02/27/20 at 14:15 Sodium Chloride 1,000 ml @ 100 mls/hr Q10H IV Last administered on 02/27/20at 14:14; Start 02/27/20 at 14:15; Stop 02/27/20 at 15:44; Status DC Ondansetron HCl (Zofran) 4 mg PRN Q4HRS PRN IV NAUSEA/VOMITING; Start 02/27/20 at 14:15 Acetaminophen (Tylenol) 650 mg PRN Q4HRS PRN PO TEMP OVER 100.4F OR MILD PAIN Last administered on 02/27/20at 21:09; Start 02/27/20 at 14:15 Al Hydroxide/Mg Hydroxide (Mylanta Plus Xs) 30 ml PRN DAILY PRN PO HEARTBURN / GAS; Start 02/27/20 at 14:15 Clonidine HCl (Catapres) 0.1 mg PRN Q6HRS PRN PO SBP>160 OR DBP>90; Start 02/27/20 at 14:15 Sodium Monofluorophosphate (Fleet Adult) 133 ml PRN DAILY PRN AR CONSTIPATION; Start 02/27/20 at 14:15 Diphenhydramine HCl (Benadryl) 25 mg PRN Q4HRS PRN IVP ITCHING; Start 02/27/20 at 14:15 Docusate Sodium (Colace) 100 mg PRN BID PRN PO HARD STOOLS; Start 02/27/20 at 14:15 Albuterol Sulfate (Ventolin Neb Soln) 2.5 mg PRN Q4HRS PRN NEB SHORTNESS OF BREATH; Start 02/27/20 at 14:15 Guaifenesin (Robitussin) 200 mg PRN Q4HRS PRN PO COUGH; Start 02/27/20 at 14:15 Lorazepam (Ativan) 0.5 mg PRN Q4HRS PRN PO ANXIETY / AGITATION; Start 02/27/20 at 14:15 Enoxaparin Sodium (Lovenox 40mg Syringe) 40 mg Q24H SQ Last administered on 02/27/20at 15:52; Start 02/27/20 at 15:00 Piperacillin Sod/ Tazobactam Sod 3.375 gm/Sodium Chloride 50 ml @ 100 mls/hr Q6HRS IV Last administered on 02/28/20at 05:43; Start 02/27/20 at 15:00 Dexamethasone Sodium Phosphate (Decadron) 6 mg DAILY IVP Last administered on 02/28/20at 08:09; Start 02/28/20 at 09:00 Active Scripts Active Prednisone 50 Mg Tablet 1 Tab PO DAILY Tamiflu (Oseltamivir Phosphate) 75 Mg Capsule 1 Cap PO BID Reported Mucinex (Guaifenesin) 600 Mg Tablet.er 1 Tab PO BID 10 Days Vitals/I & O Vital Sign - Last 24 Hours 02/27/20 02/27/20 02/27/20 02/27/20 10:25 11:30 12:30 13:30 Temp 101.9 101.9 Pulse 96 88 84 Resp 20 18 18 B/P (MAP) 143/67 (92) 120/70 (87) 113/63 (80) Pulse Ox 93 98 97 O2 Delivery Nasal Cannula Nasal Cannula Nasal Cannula Nasal Cannula O2 Flow Rate 4.0 4.0 2.0 2.0 02/27/20 02/27/20 02/27/20 02/27/20 14:01 15:17 19:00 20:20 Temp 100.7 99.9 100.7 99.9 Pulse 93 67 Resp 2 18 B/P (MAP) 120/60 (80) 112/60 (77) Pulse Ox 97 94 96 O2 Delivery Nasal Cannula Nasal Cannula Nasal Cannula Nasal Cannula O2 Flow Rate 4.0 4.0 2.0 02/27/20 02/28/20 02/28/20 02/28/20 22:54 03:00 07:00 08:00 Temp 98.4 96.4 97.2 98.4 96.4 97.2 Pulse 57 67 81 Resp 18 18 17 B/P (MAP) 104/67 (79) 127/67 (87) 129/64 (85) Pulse Ox 96 91 91 O2 Delivery Nasal Cannula Nasal Cannula Nasal Cannula Nasal Cannula O2 Flow Rate 4.0 4.0 2.0 2.0 Intake and Output 02/27/20 02/27/20 02/28/20 15:00 23:00 07:00 Intake Total 550 ml 360 ml Balance 550 ml 360 ml Justicifation of Admission Dx: Justifications for Admission: Justification of Admission Dx: Yes Comminuty Aquired Pneumonia: Hypoxemia GOLDEN CHRISTIE MD Feb 28, 2020 10:12
[2020-02-28 10:18] LABS: ALBUMIN 2.5 g/dL (3.4-5.0); ALBUMIN/GLOBULIN RATIO 0.6 (1.0-1.7); CALCIUM 8.3 mg/dL (8.5-10.1); CREATININE 0.8 mg/dL (0.7-1.3); GFR 98.9; POTASSIUM 3.6 mmol/L (3.5-5.1); TOTAL BILIRUBIN 0.7 mg/dL (0.2-1.0); TOTAL PROTEIN 6.7 g/dL (6.4-8.2)
[2020-02-28 11:00] VITALS: BP 118/63
[2020-02-28 15:00] VITALS: BP 133/68
--- NOTE | 2020-02-28 17:07 | NUR ---
SW following for discharge planning. SW spoke with RN and reviewed chart. Pt COVID positive, IV Zosyn, 4l 02. PT recommendation is home, independent. Possible 6 min walk needed prior to discharge. SW following.
[2020-02-28 19:00] VITALS: BP 130/68
[2020-02-28] MEDS: LACTOBACILLUS RHAMNOSUS GG 1 CAPSULE. PO SCH (20:25)
[2020-02-28] MEDS: ENOXAPARIN 40 MG/0.4 ML SYRINGE. SQ SCH (20:25)
[2020-02-28 23:00] VITALS: BP 135/70
[2020-02-29 03:00] VITALS: BP 132/70
[2020-02-29] MEDS: PIPERACILLIN/TAZOBACTAM 3.375 GM in IV NORMAL SALINE 50ML 50 ML IV SCH ×3 (05:17→17:25)
[2020-02-29] MEDS: IV NORMAL SALINE 1000ML BAG 1,000 ML IV SCH ×3 (05:17→21:39)
[2020-02-29 07:00] VITALS: BP 123/66
[2020-02-29] MEDS: DEXAMETHASONE SOD PHOS 4 MG/ML VIAL IVP SCH (08:51)
[2020-02-29] MEDS: LACTOBACILLUS RHAMNOSUS GG 1 CAPSULE. PO SCH ×2 (08:51→20:34)
[2020-02-29] MEDS: ENOXAPARIN 40 MG/0.4 ML SYRINGE. SQ SCH ×2 (08:51→20:35)
--- NOTE | 2020-02-29 08:58 | PDOC ---
PROGRESS NOTES Date of Service: DATE: 02/29/20 TIME: 08:57 Chief Complaint Chief Complaint VTE Prophylaxis Ordered VTE Prophylaxis Devices: Yes VTE Pharmacological Prophylaxi: Yes Assessment/Plan Assessment/Plan Impression: Acute hypoxic respiratory failure on 4 mliters nc consolidating pneumonia superimposed on mild Covid pneumonia. plan admit consult pulmonary o2 support Empiric antibiotic. IV dexamethasone. incentive spirometry vit c zinc vit d D/W RN Justifications for Admission Justifications for Admission Other Justification History of Present Illness History of Present Illness Identification/Chief Complaint Chief Complaint SEEN IN ER WITH COVID 19 PNEUMONIA 59 year old male who presented to ER for evaluation of cough, fever, trouble breathing. //has been sick for a week, tested positive for COVID-19 on last Tuesday. non-smoker. denies any chest pain, no abdominal pain, no nausea or vomiting. oxygen saturation on room air is 85% upon arrival to room, his oxygen saturati on improved to 95% with 2 L of oxygen. Past Medical History Cardiovascular: Hyperlipidemia Family History Family History: Hypertension Social History Smoke: <1 pack per day ALCOHOL: none Drugs: None Vitals Vitals Vital Signs Date Time Temp Pulse Resp B/P (MAP) Pulse Ox O2 Delivery O2 Flow Rate FiO2 02/29/20 03:00 97.8 80 24 132/70 (90) 96 Nasal Cannula 4.0 97.8 Physical Exam Physical Exam Constitutional: Well developed, well nourished, no acute distress, non-toxic appearance. [] HENT: Normocephalic, atraumatic, bilateral external ears normal, oropharynx moist, no oral exudates, nose normal. [] Eyes: PERRLA, EOMI, conjunctiva normal, no discharge. [] Neck: Normal range of motion, no tenderness, supple, no stridor. [] Cardiovascular:Heart rate regular rhythm, no murmur [] Lungs & Thorax: Bilateral breath sounds with diffuse crackles to auscultation [] Abdomen: Bowel sounds normal, soft, no tenderness, no masses, no pulsatile masses. [] Skin: Warm, dry, no erythema, no rash. [] Back: No tenderness, no CVA tenderness. [] Extremities: No tenderness, no cyanosis, no clubbing, ROM intact, no edema. [] Neurologic: Alert and oriented X 3, normal motor function, normal sensory function, no focal deficits noted. [] Psychologic: Affect normal, judgment normal, mood normal. [] General: Alert, Oriented X3, Cooperative, No acute distress Heart: Regular rate Lungs: Crackles Abdomen: Normal bowel sounds, Soft, No tenderness Extremities: No cyanosis Assessment and Plan Assessmemt and Plan Problems Medical Problems: (1) Pneumonia due to COVID-19 virus Status: Acute (2) Respiratory failure Status: Acute Comment Review of Relevant I have reviewed the following items ying (where applicable) has been applied. Labs Laboratory Tests Test 02/27/20 10:30 02/28/20 08:05 White Blood Count 9.9 x10^3/uL (4.0-11.0) 13.5 x10^3/uL (4.0-11.0) Red Blood Count 4.72 x10^6/uL (4.30-5.70) 4.28 x10^6/uL (4.30-5.70) Hemoglobin 14.5 g/dL (13.0-17.5) 13.1 g/dL (13.0-17.5) Hematocrit 42.3 % (39.0-53.0) 38.9 % (39.0-53.0) Mean Corpuscular Volume 90 fL (79-100) 91 fL (79-100) Mean Corpuscular Hemoglobin 31 pg (25-35) 31 pg (25-35) Mean Corpuscular Hemoglobin Concent 34 g/dL (31-37) 34 g/dL (31-37) Red Cell Distribution Width 13.4 % (11.5-14.5) 13.2 % (11.5-14.5) Platelet Count 174 x10^3/uL (140-400) 171 x10^3/uL (140-400) Neutrophils (%) (Auto) 88 % (31-73) 93 % (31-73) Lymphocytes (%) (Auto) 5 % (24-48) 3 % (24-48) Monocytes (%) (Auto) 7 % (0-9) 3 % (0-9) Eosinophils (%) (Auto) 0 % (0-3) 0 % (0-3) Basophils (%) (Auto) 0 % (0-3) 0 % (0-3) Neutrophils # (Auto) 8.7 x10^3/uL (1.8-7.7) 12.6 x10^3/uL (1.8-7.7) Lymphocytes # (Auto) 0.5 x10^3/uL (1.0-4.8) 0.5 x10^3/uL (1.0-4.8) Monocytes # (Auto) 0.7 x10^3/uL (0.0-1.1) 0.4 x10^3/uL (0.0-1.1) Eosinophils # (Auto) 0.0 x10^3/uL (0.0-0.7) 0.0 x10^3/uL (0.0-0.7) Basophils # (Auto) 0.0 x10^3/uL (0.0-0.2) 0.0 x10^3/uL (0.0-0.2) Segmented Neutrophils % 91 % (35-66) Band Neutrophils % 3 % (0-9) Monocytes % 5 % (0-10) Eosinophils % 1 % (0-5) Platelet Estimate Adequate (ADEQUATE) Urine Collection Type Unknown Urine Color [place] Urine Clarity Clear Urine pH 6.0 (<5.0-8.0) Urine Specific [place] >=1.030 (1.000-1.030) Urine Protein >=300 mg/dL (NEG-TRACE) Urine Glucose (UA) Negative mg/dL (NEG) Urine Ketones (Stick) >=80 mg/dL (NEG) Urine Blood Trace (NEG) Urine Nitrite Negative (NEG) Urine Bilirubin Small (NEG) Urine Urobilinogen Dipstick 4.0 mg/dL (0.2 mg/dL) Urine Leukocyte Esterase Trace (NEG) Urine RBC Occ /HPF (0-2) Urine WBC 1-4 /HPF (0-4) Urine Squamous Epithelial Cells Occ /LPF Urine Bacteria Few /HPF (0-FEW) Urine Mucus Mod /LPF Sodium Level 137 mmol/L (136-145) 142 mmol/L (136-145) Potassium Level 4.0 mmol/L (3.5-5.1) 3.6 mmol/L (3.5-5.1) Chloride Level 100 mmol/L (98-107) 107 mmol/L (98-107) Carbon Dioxide Level 26 mmol/L (21-32) 25 mmol/L (21-32) Anion Gap 11 (6-14) 10 (6-14) Blood Urea Nitrogen 18 mg/dL (8-26) 21 mg/dL (8-26) Creatinine 1.0 mg/dL (0.7-1.3) 0.8 mg/dL (0.7-1.3) Estimated GFR (Cockcroft-Gault) 76.5 98.9 BUN/Creatinine Ratio 18 (6-20) 26 (6-20) Glucose Level 128 mg/dL (70-99) 129 mg/dL (70-99) Lactic Acid Level 1.3 mmol/L (0.4-2.0) Calcium Level 8.6 mg/dL (8.5-10.1) 8.3 mg/dL (8.5-10.1) Total Bilirubin 1.4 mg/dL (0.2-1.0) 0.7 mg/dL (0.2-1.0) Aspartate Amino Transf (AST/SGOT) 59 U/L (15-37) 59 U/L (15-37) Alanine Aminotransferase (ALT/SGPT) 76 U/L (16-63) 68 U/L (16-63) Alkaline Phosphatase 90 U/L (46-116) 76 U/L (46-116) Troponin I Quantitative < 0.017 ng/mL (0.000-0.055) Total Protein 7.1 g/dL (6.4-8.2) 6.7 g/dL (6.4-8.2) Albumin 3.5 g/dL (3.4-5.0) 2.5 g/dL (3.4-5.0) Albumin/Globulin Ratio 1.0 (1.0-1.7) 0.6 (1.0-1.7) Microbiology 02/27/20 Urine Culture - Final, Complete 02/27/20 Blood Culture - Preliminary, Resulted NO GROWTH AFTER 1 DAY Medications Current Medications Ceftriaxone Sodium (Rocephin) 1 gm 1X ONCE IVP Last administered on 02/27/20at 11:15; Start 02/27/20 at 11:15; Stop 02/27/20 at 11:16; Status DC Methylprednisolone Sodium Succinate (SOLU-Medrol 125MG VIAL) 125 mg 1X ONCE IV Last administered on 02/27/20at 11:28; Start 02/27/20 at 11:15; Stop 02/27/20 at 11:16; Status DC Ondansetron HCl (Zofran) 4 mg PRN Q8HRS PRN IV NAUSEA/VOMITING Last administered on 02/27/20at 11:28; Start 02/27/20 at 11:30; Stop 02/27/20 at 14:09; Status DC Sodium Chloride 1,000 ml @ 100 mls/hr Q10H IV Last administered on 02/29/20at 08:02; Start 02/27/20 at 11:30 Acetaminophen (Tylenol) 650 mg PRN Q6HRS PRN PO MILD PAIN / TEMP > 100.3'F Last administered on 02/27/20at 14:04; Start 02/27/20 at 14:00; Stop 02/27/20 at 14 :09; Status DC Sodium Chloride (Normal Saline Flush) 3 ml QSHIFT PRN IV AFTER MEDS AND BLOOD DRAWS; Start 02/27/20 at 14:15 Sodium Chloride 1,000 ml @ 100 mls/hr Q10H IV Last administered on 02/27/20at 14:14; Start 02/27/20 at 14:15; Stop 02/27/20 at 15:44; Status DC Ondansetron HCl (Zofran) 4 mg PRN Q4HRS PRN IV NAUSEA/VOMITING; Start 02/27/20 at 14:15 Acetaminophen (Tylenol) 650 mg PRN Q4HRS PRN PO TEMP OVER 100.4F OR MILD PAIN Last administered on 02/27/20at 21:09; Start 02/27/20 at 14:15 Al Hydroxide/Mg Hydroxide (Mylanta Plus Xs) 30 ml PRN DAILY PRN PO HEARTBURN / GAS; Start 02/27/20 at 14:15 Clonidine HCl (Catapres) 0.1 mg PRN Q6HRS PRN PO SBP>160 OR DBP>90; Start 02/27/20 at 14:15 Sodium Monofluorophosphate (Fleet Adult) 133 ml PRN DAILY PRN [place] CONSTIPATION; Start 02/27/20 at 14:15 Diphenhydramine HCl (Benadryl) 25 mg PRN Q4HRS PRN IVP ITCHING; Start 02/27/20 at 14:15 Docusate Sodium (Colace) 100 mg PRN BID PRN PO HARD STOOLS; Start 02/27/20 at 14:15 Albuterol Sulfate (Ventolin Neb Soln) 2.5 mg PRN Q4HRS PRN NEB SHORTNESS OF BREATH; Start 02/27/20 at 14:15 Guaifenesin (Robitussin) 200 mg PRN Q4HRS PRN PO COUGH; Start 02/27/20 at 14:15 Lorazepam (Ativan) 0.5 mg PRN Q4HRS PRN PO ANXIETY / AGITATION; Start 02/27/20 at 14:15 Enoxaparin Sodium (Lovenox 40mg Syringe) 40 mg Q24H SQ Last administered on 02/27/20at 15:52; Start 02/27/20 at 15:00; Stop 02/28/20 at 11:52; Status DC Piperacillin Sod/ Tazobactam Sod 3.375 gm/Sodium Chloride 50 ml @ 100 mls/hr Q6HRS IV Last administered on 02/29/20at 05:17; Start 02/27/20 at 15:00 Dexamethasone Sodium Phosphate (Decadron) 6 mg DAILY IVP Last administered on 02/29/20at 08:51; Start 02/28/20 at 09:00 Enoxaparin Sodium (Lovenox 40mg Syringe) 40 mg BID SQ Last administered on 02/29/20at 08:51; Start 02/28/20 at 21:00 Lactobacillus Rhamnosus (Culturelle) 1 cap BID PO Last administered on 02/29/20at 08:51; Start 02/28/20 at 21:00 Active Scripts Active Prednisone 50 Mg Tablet 1 Tab PO DAILY Tamiflu (Oseltamivir Phosphate) 75 Mg Capsule 1 Cap PO BID Reported Mucinex (Guaifenesin) 600 Mg Tablet.er 1 Tab PO BID 10 Days Vitals/I & O Vital Sign - Last 24 Hours 02/28/20 02/28/20 02/28/20 02/28/20 11:00 15:00 19:00 20:15 Temp 97.8 97.8 97.5 97.8 97.8 97.5 Pulse 95 88 77 Resp 21 20 26 B/P (MAP) 118/63 (81) 133/68 (89) 130/68 (88) Pulse Ox 95 94 96 O2 Delivery Nasal Cannula Nasal Cannula Nasal Cannula Nasal Cannula O2 Flow Rate 4.0 19.0 4.0 2.0 02/28/20 02/29/20 23:00 03:00 Temp 97.2 97.8 97.2 97.8 Pulse 83 80 Resp 28 24 B/P (MAP) 135/70 (91) 132/70 (90) Pulse Ox 97 96 O2 Delivery Nasal Cannula Nasal Cannula O2 Flow Rate 4.0 4.0 Intake and Output 02/28/20 02/28/20 02/29/20 15:00 23:00 07:00 Intake Total 750 ml 969 ml 300 ml Output Total 1200 ml Balance 750 ml -231 ml 300 ml Justicifation of Admission Dx: Justifications for Admission: Justification of Admission Dx: Yes Comminuty Aquired Pneumonia: Hypoxemia GOLDEN CHRISTIE MD Feb 29, 2020 08:58
[2020-02-29 11:04] VITALS: BP 122/60
--- NOTE | 2020-02-29 11:40 | PDOC ---
PULMONARY PROGRESS NOTES DATE: 02/29/20 TIME: 11:38 Subjective No new complaints, requiring more oxygen. Vitals Vital Signs Date Time Temp Pulse Resp B/P (MAP) Pulse Ox O2 Delivery O2 Flow Rate FiO2 02/29/20 11:04 95.7 78 16 122/60 (80) 97 Nasal Cannula 4.0 95.7 ROS: No Nausea, No Chest Pain, No Abdominal Pain, No Increase Cough Lungs: Crackles Cardiovascular: S1, S2 Abdomen: Soft Neuro Exam: Alert Extremities: No Edema Skin: Warm Labs Laboratory Tests Test 02/28/20 08:05 White Blood Count 13.5 x10^3/uL (4.0-11.0) Red Blood Count 4.28 x10^6/uL (4.30-5.70) Hemoglobin 13.1 g/dL (13.0-17.5) Hematocrit 38.9 % (39.0-53.0) Mean Corpuscular Volume 91 fL (79-100) Mean Corpuscular Hemoglobin 31 pg (25-35) Mean Corpuscular Hemoglobin Concent 34 g/dL (31-37) Red Cell Distribution Width 13.2 % (11.5-14.5) Platelet Count 171 x10^3/uL (140-400) Neutrophils (%) (Auto) 93 % (31-73) Lymphocytes (%) (Auto) 3 % (24-48) Monocytes (%) (Auto) 3 % (0-9) Eosinophils (%) (Auto) 0 % (0-3) Basophils (%) (Auto) 0 % (0-3) Neutrophils # (Auto) 12.6 x10^3/uL (1.8-7.7) Lymphocytes # (Auto) 0.5 x10^3/uL (1.0-4.8) Monocytes # (Auto) 0.4 x10^3/uL (0.0-1.1) Eosinophils # (Auto) 0.0 x10^3/uL (0.0-0.7) Basophils # (Auto) 0.0 x10^3/uL (0.0-0.2) Sodium Level 142 mmol/L (136-145) Potassium Level 3.6 mmol/L (3.5-5.1) Chloride Level 107 mmol/L (98-107) Carbon Dioxide Level 25 mmol/L (21-32) Anion Gap 10 (6-14) Blood Urea Nitrogen 21 mg/dL (8-26) Creatinine 0.8 mg/dL (0.7-1.3) Estimated GFR (Cockcroft-Gault) 98.9 BUN/Creatinine Ratio 26 (6-20) Glucose Level 129 mg/dL (70-99) Calcium Level 8.3 mg/dL (8.5-10.1) Total Bilirubin 0.7 mg/dL (0.2-1.0) Aspartate Amino Transf (AST/SGOT) 59 U/L (15-37) Alanine Aminotransferase (ALT/SGPT) 68 U/L (16-63) Alkaline Phosphatase 76 U/L (46-116) Total Protein 6.7 g/dL (6.4-8.2) Albumin 2.5 g/dL (3.4-5.0) Albumin/Globulin Ratio 0.6 (1.0-1.7) Medications Active Scripts Medications Dose Route/Sig Max Daily Dose Days Date Category Mucinex (Guaifenesin) 600 Mg Tablet.er 1 Tab PO BID 10 02/27/20 Reported Prednisone 50 Mg Tablet 1 Tab PO DAILY 02/25/19 Rx Tamiflu (Oseltamivir Phosphate) 75 Mg Capsule 1 Cap PO BID 02/25/19 Rx Impression . IMPRESSION: 1. Acute hypoxic respiratory failure secondary to COVID-19 pneumonia. 2. Abnormal chest x-ray with faint interstitial infiltrates in the left lung. 3. No significant tobacco history. Plan . Continue oxygen supplementation IV dexamethasone, antibiotics. DVT prophylax Continue current support, Repeat chest x-ray in 6 to 8 weeks. Reassured patient that he will improve with time. ALE ROTHMAN MD Feb 29, 2020 11:40
--- NOTE | 2020-02-29 14:34 | NUR ---
MAGGY following for discharge planning. MAGGY spoke with RN and reviewed chart. Pt remains on 4l 02. Spoke with pt's and son by phone and pt does not have home 02. MAGGY requested 6 min walk. Pt and family stated no preference in 02 provider. MAGGY faxed initial referral to Kapil with [facility] as they take pt's insurance. Patient choice of vendor form completed. 6 min walk results and script will need to be faxed to [facility] prior to discharge. Pt added to possible weekend discharge list. MAGGY following. Addendum: 02/29/20 at 1556 by JUDY WINTER MAGGY obtained script and faxed this and 6 min walk results to [facility]. MAGGY confirmed orders received. 02 tank delivered to pt's room for discharge home tomorrow, 03/01. Pt removed from weekend discharge list as all SW needs met. No further SW needs at this time.
[2020-02-29 15:00] VITALS: BP 136/70
[2020-02-29] MEDS: ZINC SULFATE 220 MG CAPSULE. PO SCH (16:41)
[2020-02-29] MEDS: CHOLECALCIFEROL (VITAMIN D3) 5,000 UNIT CAPSULE PO SCH (16:41)
[2020-02-29] MEDS: ASCORBIC ACID 500 MG TABLET PO SCH (16:42)
[2020-02-29 19:00] VITALS: BP 131/65
[2020-02-29 23:04] VITALS: BP 133/72
[2020-03-01] MEDS: PIPERACILLIN/TAZOBACTAM 3.375 GM in IV NORMAL SALINE 50ML 50 ML IV SCH ×3 (00:23→13:00)
[2020-03-01 03:00] VITALS: BP 139/72
[2020-03-01 07:00] VITALS: BP 122/65
--- NOTE | 2020-03-01 08:42 | PDOC ---
PULMONARY PROGRESS NOTES DATE: 03/01/20 TIME: 08:41 Subjective sob better, has cough, on 02 3lpm Vitals Vital Signs Date Time Temp Pulse Resp B/P (MAP) Pulse Ox O2 Delivery O2 Flow Rate FiO2 03/01/20 03:00 97.9 66 19 139/72 (94) 98 Nasal Cannula 3.0 97.9 Comments alert no distress NC AT RRR no accessory muscle use Cardiovascular: S2 Neuro Exam: Alert Extremities: No Edema Skin: No Rashes Medications Active Scripts Medications Dose Route/Sig Max Daily Dose Days Date Category Mucinex (Guaifenesin) 600 Mg Tablet.er 1 Tab PO BID 10 02/27/20 Reported Prednisone 50 Mg Tablet 1 Tab PO DAILY 02/25/19 Rx Tamiflu (Oseltamivir Phosphate) 75 Mg Capsule 1 Cap PO BID 02/25/19 Rx Impression . IMPRESSION: 1. Acute hypoxic respiratory failure secondary to COVID-19 pneumonia. 2. Abnormal chest x-ray with faint interstitial infiltrates in the left lung. 3. No significant tobacco history. Plan . Continue oxygen supplementation to keep sat 90% IV dexamethasone, antibiotics. DVT prophylax Continue current support, Repeat chest x-ray in 6 to 8 weeks. discussed w YOLANDA Dhaliwal MD Mar 01, 2020 08:42
[2020-03-01] MEDS: ASCORBIC ACID 500 MG TABLET PO SCH (09:23)
[2020-03-01] MEDS: CHOLECALCIFEROL (VITAMIN D3) 5,000 UNIT CAPSULE PO SCH (09:23)
[2020-03-01] MEDS: LACTOBACILLUS RHAMNOSUS GG 1 CAPSULE. PO SCH (09:23)
[2020-03-01] MEDS: ENOXAPARIN 40 MG/0.4 ML SYRINGE. SQ SCH (09:23)
[2020-03-01] MEDS: DEXAMETHASONE SOD PHOS 4 MG/ML VIAL IVP SCH (09:23)
[2020-03-01] MEDS: ZINC SULFATE 220 MG CAPSULE. PO SCH (09:23)
[2020-03-01] MEDS: IV NORMAL SALINE 1000ML BAG 1,000 ML IV SCH (10:33)
--- NOTE | 2020-03-01 10:33 | PDOC ---
PROGRESS NOTES Date of Service: DATE: 03/01/20 TIME: 10:33 Chief Complaint Chief Complaint VTE Prophylaxis Ordered VTE Prophylaxis Devices: Yes VTE Pharmacological Prophylaxi: Yes DISCHARGE DX Assessment/Plan Impression: Acute hypoxic respiratory failure on 3-4 4 mliters nc consolidating pneumonia superimposed on mild Covid pneumonia. plan admit consult pulmonary o2 support Empiric antibiotic. ZOSYN, CHG PO AUGMENTIN IV dexamethasone. incentive spirometry vit c zinc vit d CXR TODAY 03-01 STABLE 03-01 YESTERDAY WAS ON HIGH FLOW O2 FOR A PERIOD OF TIME feels better today, wants to go home d/c planning 27 min D/W RN Justifications for Admission Justifications for Admission Other Justification History of Present Illness History of Present Illness Identification/Chief Complaint Chief Complaint SEEN IN ER WITH COVID 19 PNEUMONIA 59 year old male who presented to ER for evaluation of cough, fever, trouble breathing. //has been sick for a week, tested positive for COVID-19 on last Tuesday. non-smoker. denies any chest pain, no abdominal pain, no nausea or vomiting. oxygen saturation on room air is 85% upon arrival to room, his oxygen saturation improved to 95% with 2 L of oxygen. Past Medical History Cardiovascular: Hyperlipidemia Family History Family History: Hypertension Social History Smoke: <1 pack per day ALCOHOL: none Drugs: None Vitals Vitals Vital Signs Date Time Temp Pulse Resp B/P (MAP) Pulse Ox O2 Delivery O2 Flow Rate FiO2 03/01/20 07:00 98.2 75 19 122/65 (84) 96 Nasal Cannula 3.0 98.2 Physical Exam Physical Exam Constitutional: Well developed, well nourished, no acute distress, non-toxic appearance. [] HENT: Normocephalic, atraumatic, bilateral external ears normal, oropharynx moist, no oral exudates, nose normal. [] Eyes: PERRLA, EOMI, conjunctiva normal, no discharge. [] Neck: Normal range of motion, no tenderness, supple, no stridor. [] Cardiovascular:Heart rate regular rhythm, no murmur [] Lungs & Thorax: Bilateral breath sounds with diffuse crackles to auscultation [] Abdomen: Bowel sounds normal, soft, no tenderness, no masses, no pulsatile masses. [] Skin: Warm, dry, no erythema, no rash. [] Back: No tenderness, no CVA tenderness. [] Extremities: No tenderness, no cyanosis, no clubbing, ROM intact, no edema. [] Neurologic: Alert and oriented X 3, normal motor function, normal sensory function, no focal deficits noted. [] Psychologic: Affect normal, judgment normal, mood normal. [] General: Alert, Oriented X3, Cooperative, No acute distress Heart: Regular rate, Normal S1 Lungs: Crackles Abdomen: Normal bowel sounds, Soft, No tenderness Extremities: No cyanosis, No edema Labs LABS SPEC #: [id number] PRASHANTH: 02/27/20 STATUS: RES REQ #: [id number] RECD: 02/27/[address]: MABLE PATTON DO SOURCE: BLOOD ENTR: 02/27/[address] [facility] [address]: LYRIC PCP SPDESC: ORDERED: BCULT Procedure Result BLOOD CULTURE Preliminary NO GROWTH AFTER 3 DAYS Assessment and Plan Assessmemt and Plan Problems Medical Problems: (1) Pneumonia due to COVID-19 virus Status: Acute (2) Respiratory failure Status: Acute Comment Review of Relevant I have reviewed the following items ying (where applicable) has been applied. Labs Microbiology 02/27/20 Urine Culture - Final, Complete 02/27/20 Blood Culture - Preliminary, Resulted NO GROWTH AFTER 2 DAYS Medications Current Medications Ceftriaxone Sodium (Rocephin) 1 gm 1X ONCE IVP Last administered on 02/27/20at 11:15; Start 02/27/20 at 11:15; Stop 02/27/20 at 11:16; Status DC Methylprednisolone Sodium Succinate (SOLU-Medrol 125MG VIAL) 125 mg 1X ONCE IV Last administered on 02/27/20at 11:28; Start 02/27/20 at 11:15; Stop 02/27/20 at 11:16; Status DC Ondansetron HCl (Zofran) 4 mg PRN Q8HRS PRN IV NAUSEA/VOMITING Last administered on 02/27/20at 11:28; Start 02/27/20 at 11:30; Stop 02/27/20 at 14:09; Status DC Sodium Chloride 1,000 ml @ 100 mls/hr Q10H IV Last administered on 02/29/20at 21:39; Start 02/27/20 at 11:30 Acetaminophen (Tylenol) 650 mg PRN Q6HRS PRN PO MILD PAIN / TEMP > 100.3'F Last administered on 02/27/20at 14:04; Start 02/27/20 at 14:00; Stop 02/27/20 at 14:09; Status DC Sodium Chloride (Normal Saline Flush) 3 ml QSHIFT PRN IV AFTER MEDS AND BLOOD DRAWS; Start 02/27/20 at 14:15 Sodium Chloride 1,000 ml @ 100 mls/hr Q10H IV Last administered on 02/27/20at 14:14; Start 02/27/20 at 14:15; Stop 02/27/20 at 15:44; Status DC Ondansetron HCl (Zofran) 4 mg PRN Q4HRS PRN IV NAUSEA/VOMITING; Start 02/27/20 at 14:15 Acetaminophen (Tylenol) 650 mg PRN Q4HRS PRN PO TEMP OVER 100.4F OR MILD PAIN Last administered on 02/27/20at 21:09; Start 02/27/20 at 14:15 Al Hydroxide/Mg Hydroxide (Mylanta Plus Xs) 30 ml PRN DAILY PRN PO HEARTBURN / GAS; Start 02/27/20 at 14:15 Clonidine HCl (Catapres) 0.1 mg PRN Q6HRS PRN PO SBP>160 OR DBP>90; Start 02/27/20 at 14:15 Sodium Monofluorophosphate (Fleet Adult) 133 ml PRN DAILY PRN [place] CONSTIPATION; Start 02/27/20 at 14:15 Diphenhydramine HCl (Benadryl) 25 mg PRN Q4HRS PRN IVP ITCHING; Start 02/27/20 at 14:15 Docusate Sodium (Colace) 100 mg PRN BID PRN PO HARD STOOLS; Start 02/27/20 at 14:15 Albuterol Sulfate (Ventolin Neb Soln) 2.5 mg PRN Q4HRS PRN NEB SHORTNESS OF BREATH; Start 02/27/20 at 14:15 Guaifenesin (Robitussin) 200 mg PRN Q4HRS PRN PO COUGH; Start 02/27/20 at 14:15 Lorazepam (Ativan) 0.5 mg PRN Q4HRS PRN PO ANXIETY / AGITATION; Start 02/27/20 at 14:15 Enoxaparin Sodium (Lovenox 40mg Syringe) 40 mg Q24H SQ Last administered on 02/27/20at 15:52; Start 02/27/20 at 15:00; Stop 02/28/20 at 11:52; Status DC Piperacillin Sod/ Tazobactam Sod 3.375 gm/Sodium Chloride 50 ml @ 100 mls/hr Q6HRS IV Last administered on 03/01/20at 05:30; Start 02/27/20 at 15:00 Dexamethasone Sodium Phosphate (Decadron) 6 mg DAILY IVP Last administered on 03/01/20at 09:23; Start 02/28/20 at 09:00 Enoxaparin Sodium (Lovenox 40mg Syringe) 40 mg BID SQ Last administered on 03/01/20at 09:23; Start 02/28/20 at 21:00 Lactobacillus Rhamnosus (Culturelle) 1 cap BID PO Last administered on 03/01/20at 09:23; Start 02/28/20 at 21:00 Ascorbic Acid (Vitamin C) 500 mg DAILY PO Last administered on 03/01/20at 09:23; Start 02/29/20 at 16:00 Vitamin D (Vitamin D3) 5,000 unit DAILY PO Last administered on 03/01/20at 09:23; Start 02/29/20 at 16:00 Zinc Sulfate (Orazinc) 220 mg DAILY PO Last administered on 03/01/20at 09:23; Start 02/29/20 at 16:00 Active Scripts Active Prednisone 50 Mg Tablet 1 Tab PO DAILY Tamiflu (Oseltamivir Phosphate) 75 Mg Capsule 1 Cap PO BID Reported Mucinex (Guaifenesin) 600 Mg Tablet.er 1 Tab PO BID 10 Days Vitals/I & O Vital Sign - Last 24 Hours 02/29/20 02/29/20 02/29/20 02/29/20 11:04 15:00 19:00 20:00 Temp 95.7 97.2 98.2 95.7 97.2 98.2 Pulse 78 73 75 Resp 16 18 32 B/P (MAP) 122/60 (80) 136/70 (92) 131/65 (87) Pulse Ox 97 92 97 O2 Delivery Nasal Cannula Nasal Cannula Nasal Cannula Nasal Cannula O2 Flow Rate 4.0 4.0 3.0 4.0 02/29/20 03/01/20 03/01/20 23:04 03:00 07:00 Temp 98.1 97.9 98.2 98.1 97.9 98.2 Pulse 73 66 75 Resp 24 19 19 B/P (MAP) 133/72 (92) 139/72 (94) 122/65 (84) Pulse Ox 97 98 96 O2 Delivery Nasal Cannula Nasal Cannula Nasal Cannula O2 Flow Rate 3.0 3.0 3.0 Intake and Output 02/29/20 02/29/20 03/01/20 15:00 23:00 07:00 Intake Total 240 ml 900 ml Output Total 700 ml 500 ml Balance -460 ml 400 ml Justicifation of Admission Dx: Justifications for Admission: Justification of Admission Dx: Yes Comminuty Aquired Pneumonia: Hypoxemia GOLDEN CHRISTIE MD Mar 01, 2020 10:33
[2020-03-01 11:13] VITALS: BP 132/68
[2020-03-01 15:08] VITALS: BP 113/67
--- NOTE | 2020-03-01 16:40 | PDOC3 ---
Discharge Summary Date of Admission: Feb 27, 2020 Date of Discharge: Mar 01, 2020 Follow-Up: 3-5 days Admitting Diagnosis comment: DISCHARGE DX Assessment/Plan Impression: Acute hypoxic respiratory failure on 3-4 4 mliters nc consolidating pneumonia superimposed on mild Covid pneumonia. plan admit consult pulmonary o2 support Empiric antibiotic. ZOSYN, CHG PO AUGMENTIN IV dexamethasone. incentive spirometry vit c zinc vit d CXR TODAY 03-01 STABLE 03-01 YESTERDAY WAS ON HIGH FLOW O2 FOR A PERIOD OF TIME feels better today, wants to go home, TO SEE PCP SOON NEXT WEEK d/c planning 27 min D/W RN Justifications for Admission Justifications for Admission Other Justification History of Present Illness History of Present Illness Identification/Chief Complaint Chief Complaint SEEN IN ER WITH COVID 19 PNEUMONIA 59 year old male who presented to ER for evaluation of cough, fever, trouble breathing. //has been sick for a week, tested positive for COVID-19 on last Tuesday. non-smoker. denies any chest pain, no abdominal pain, no nausea or vomiting. oxygen saturation on room air is 85% upon arrival to room, his oxygen saturation improved to 95% with 2 L of oxygen. Past Medical History Cardiovascular: Hyperlipidemia Family History Family History: Hypertension Social History Smoke: <1 pack per day ALCOHOL: none Drugs: None Vitals Vitals Vital Signs Date Time Temp Pulse Resp B/P (MAP) Pulse Ox O2 Delivery O2 Flow Rate FiO2 03/01/20 07:00 98.2 75 19 122/65 (84) 96 Nasal Cannula 3.0 98.2 Physical Exam Physical Exam Constitutional: Well developed, well nourished, no acute distress, non-toxic appearance. [] HENT: Normocephalic, atraumatic, bilateral external ears normal, oropharynx moist, no oral exudates, nose normal. [] Eyes: PERRLA, EOMI, conjunctiva normal, no discharge. [] Neck: Normal range of motion, no tenderness, supple, no stridor. [] Cardiovascular:Heart rate regular rhythm, no murmur [] Lungs & Thorax: Bilateral breath sounds with diffuse crackles to auscultation [] Abdomen: Bowel sounds normal, soft, no tenderness, no masses, no pulsatile masses. [] Skin: Warm, dry, no erythema, no rash. [] Back: No tenderness, no CVA tenderness. [] Extremities: No tenderness, no cyanosis, no clubbing, ROM intact, no edema. [] Neurologic: Alert and oriented X 3, normal motor function, normal sensory function, no focal deficits noted. [] Psychologic: Affect normal, judgment normal, mood normal. [] General: Alert, Oriented X3, Cooperative, No acute distress Heart: Regular rate, Normal S1 Lungs: Crackles Abdomen: Normal bowel sounds, Soft, No tenderness Extremities: No cyanosis, No edema Labs LABS SPEC #: [id number] PRASHANTH: 02/27/20 STATUS: RES REQ #: [id number] RECD: 02/27/[address]: MABLE PATTON DO SOURCE: BLOOD ENTR: 02/27/[address]: LYRIC PCP SPDESC: ORDERED: BCULT ---- -------- Procedure Result BLOOD CULTURE Preliminary NO GROWTH AFTER 3 DAYS Assessment and Plan Assessmemt and Plan Problems Medical Problems: (1) Pneumonia due to COVID-19 virus Status: Acute (2) Respiratory failure Status: Acute FINAL DIAGNOSIS Problems Medical Problems: (1) Pneumonia due to COVID-19 virus Status: Acute (2) Respiratory failure Status: Acute Brief Hospital Course Mr. Davis is a 59 old [sex] who presented with [COVID 19 PNEUMONIA ] CONDITION AT DISCHARGE: Improved Discharge Medications Current Medications Ceftriaxone Sodium (Rocephin) 1 gm 1X ONCE IVP Last administered on 02/27/20at 11:15; Start 02/27/20 at 11:15; Stop 02/27/20 at 11:16; Status DC Methylprednisolone Sodium Succinate (SOLU-Medrol 125MG VIAL) 125 mg 1X ONCE IV Last administered on 02/27/20at 11:28; Start 02/27/20 at 11:15; Stop 02/27/20 at 11:16; Status DC Ondansetron HCl (Zofran) 4 mg PRN Q8HRS PRN IV NAUSEA/VOMITING Last administered on 02/27/20at 11:28; Start 02/27/20 at 11:30; Stop 02/27/20 at 14:09; Status DC Sodium Chloride 1,000 ml @ 100 mls/hr Q10H IV Last administered on 03/01/20at 10:33; Start 02/27/20 at 11:30 Acetaminophen (Tylenol) 650 mg PRN Q6HRS PRN PO MILD PAIN / TEMP > 100.3'F Last administered on 02/27/20at 14:04; Start 02/27/20 at 14:00; Stop 02/27/20 at 14:09; Status DC Sodium Chloride (Normal Saline Flush) 3 ml QSHIFT PRN IV AFTER MEDS AND BLOOD DRAWS; Start 02/27/20 at 14:15 Sodium Chloride 1,000 ml @ 100 mls/hr Q10H IV Last administered on 02/27/20at 14:14; Start 02/27/20 at 14:15; Stop 02/27/20 at 15:44; Status DC Ondansetron HCl (Zofran) 4 mg PRN Q4HRS PRN IV NAUSEA/VOMITING; Start 02/27/20 at 14:15 Acetaminophen (Tylenol) 650 mg PRN Q4HRS PRN PO TEMP OVER 100.4F OR MILD PAIN Last administered on 02/27/20at 21:09; Start 02/27/20 at 14:15 Al Hydroxide/Mg Hydroxide (Mylanta Plus Xs) 30 ml PRN DAILY PRN PO HEARTBURN / GAS; Start 02/27/20 at 14:15 Clonidine HCl (Catapres) 0.1 mg PRN Q6HRS PRN PO SBP>160 OR DBP>90; Start 02/27/20 at 14:15 Sodium Monofluorophosphate (Fleet Adult) 133 ml PRN DAILY PRN VT CONSTIPATION; Start 02/27/20 at 14:15 Diphenhydramine HCl (Benadryl) 25 mg PRN Q4HRS PRN IVP ITCHING; Start 02/27/20 at 14:15 Docusate Sodium (Colace) 100 mg PRN BID PRN PO HARD STOOLS; Start 02/27/20 at 14:15 Albuterol Sulfate (Ventolin Neb Soln) 2.5 mg PRN Q4HRS PRN NEB SHORTNESS OF BREATH; Start 02/27/20 at 14:15 Guaifenesin (Robitussin) 200 mg PRN Q4HRS PRN PO COUGH; Start 02/27/20 at 14:15 Lorazepam (Ativan) 0.5 mg PRN Q4HRS PRN PO ANXIETY / AGITATION; Start 02/27/20 at 14:15 Enoxaparin Sodium (Lovenox 40mg Syringe) 40 mg Q24H SQ Last administered on 02/27/20at 15:52; Start 02/27/20 at 15:00; Stop 02/28/20 at 11:52; Status DC Piperacillin Sod/ Tazobactam Sod 3.375 gm/Sodium Chloride 50 ml @ 100 mls/hr Q6HRS IV Last administered on 03/01/20at 13:00; Start 02/27/20 at 15:00 Dexamethasone Sodium Phosphate (Decadron) 6 mg DAILY IVP Last administered on 03/01/20at 09:23; Start 02/28/20 at 09:00 Enoxaparin Sodium (Lovenox 40mg Syringe) 40 mg BID SQ Last administered on 03/01/20 09:23; Start 02/28/20 at 21:00 Lactobacillus Rhamnosus (Culturelle) 1 cap BID PO Last administered on 03/01/20 09:23; Start 02/28/20 at 21:00 Ascorbic Acid (Vitamin C) 500 mg DAILY PO Last administered on 03/01/20 09:23; Start 02/29/20 at 16:00 Vitamin D (Vitamin D3) 5,000 unit DAILY PO Last administered on 03/01/20 09:23; Start 02/29/20 at 16:00 Zinc Sulfate (Orazinc) 220 mg DAILY PO Last administered on 03/01/20 09:23; Start 02/29/20 at 16:00 Active Scripts Active Prednisone 50 Mg Tablet 1 Tab PO DAILY Tamiflu (Oseltamivir Phosphate) 75 Mg Capsule 1 Cap PO BID Reported Mucinex (Guaifenesin) 600 Mg Tablet.er 1 Tab PO BID 10 Days Vital Signs Vital Signs Date Time Temp Pulse Resp B/P (MAP) Pulse Ox O2 Delivery O2 Flow Rate FiO2 03/01/20 15:08 98.2 80 19 113/67 (82) 96 Nasal Cannula 3.0 98.2 Allergies Allergies Coded Allergies Type Severity Reaction Last Updated Verified No Known Drug Allergies 02/25/19 No Disposition/Orders: D/C to Home Justicifation of Admission Dx: Justifications for Admission: Justification of Admission Dx: Yes Comminuty Aquired Pneumonia: Hypoxemia GOLDEN CHRISTIE MD Mar 01, 2020 16:40
[2020-03-01] MEDS ORDERED: CHOL500051 PO (16:44)
[2020-03-01] MEDS ORDERED: ALBU2.5V8 NEB (16:44)
[2020-03-01] MEDS ORDERED: ZINC220C2 PO (16:44)
[2020-03-01] MEDS ORDERED: DEXA4TAB PO (16:44)
[2020-03-01] MEDS ORDERED: ASCO500T4 PO (16:44)
[2020-03-01] MEDS ORDERED: ACET325T9 PO (16:44)
[2020-03-01] MEDS ORDERED: MAG30ORA2 PO (16:44)
[2020-03-01] MEDS ORDERED: DOCU-153 PO (16:44)
[2020-03-01] MEDS ORDERED: LACT1CAP19 PO (16:44)
[2020-03-01] MEDS ORDERED: DOXY100C2 PO (16:45)
--- NOTE | 2020-03-01 16:46 | DISCH ---
DISCHARGE INSTRUCTIONS Condition on Discharge Condition on Discharge: Stable Activity After Discharge Activity Instructions for Disc: Activity as tolerated Driving Instructions after Dis: Do not drive Diet after Discharge Diet after Discharge: Regular Liquid Texture: Thin Liquid Checks after Discharge Checks after discharge: Check blood press - daily Contacting the DRTom after DC Call your doctor for: If your condition worsens Follow-Up Follow up with: SEE PCP NEXT WEEK, JESUS Follow Up With: OFF WORK FOR NOW Treatment/Equipment after DC Adaptive Equipment Issued: None Discharge Respiratory Equipmen: GOLDEN Topete MD Mar 01, 2020 16:46
--- NOTE | 2020-03-01 18:17 | NUR ---
Pt discharged home with . Discharge teaching done in both upper sorbian and rwandan. He verbalized understanding. Pt was given number to the oxygen company and sent home with oxygen tank. Pt was taught how to turn oxygen on and off. He said he would call the oxygen company when he gets home.
--- NOTE | 2020-03-02 11:06 | RAD ---
Study: XR CHEST 1V Indication: Pneumonia. Comparison: 02/27/2020 Findings: Redemonstrated airspace infiltrates on the left more so than right with a subpleural and basilar dist ribution. The infiltrates have become more confluent in the interim. Superimposed basilar volume loss . No large effusion or pneumothorax. Unchanged cardiomediastinal silhouette. Impression: Persistent left more so than right airspace infiltrates. The distribution of the infiltrates is simil ar though they have become more confluent in the interim. Otherwise no significant interval change. Electronically signed by: SONU GARCIA MD (03/02/2020 11:04 AM) [facility]
== END 2020-03-01 18:17 | disposition home or self-care (01) | DRG 177 ==
LOC: ER 09:25 → ED HOLD 12:32 → 1 WEST ICU 13:08 → 6 SOUTH 13:09
PROVIDERS: ADMIT Family Medicine; ATTEND Family Medicine
DX: U07.1 COVID-19 (principal); J96.01 Acute respiratory failure with hypoxia; J12.82 Pneumonia due to coronavirus disease 2019; E78.5 Hyperlipidemia, unspecified; F17.210 Nicotine dependence, cigarettes, uncomplicated; Z82.49 Family history of ischemic heart disease and other diseases of the circulatory system
CPT/HCPCS: 36415; 71045; 80053; 81001; 83605; 84484; 85007; 85025; 87040; 87086; 93005; 94618; 96374; 96375; J0696; J1100; J1650; J2405; J2543; J2930; J7030; 99291-25; G0378